=== PATIENT | female | born 1975 | race Caucasian/White ===

== ENCOUNTER 2023-11-19 08:51 | Outpatient (OUT) | payer OTHER, SELFPAY ==
--- NOTE | 2023-11-19 08:56 | MM_ITS ---
Patient Name: MIREYA CONNER MR#: [id number] : 1975 Exam Date: 11/19/2023 Ordering Doctor: DR Jae Murray . RADIOLOGY REPORT PROCEDURE: MM TOMOSYNTHESIS SCREENING BI COMPARISON: MG MAMM LIN SCRN W CAD DIG, 07/23/2015. MG MAMM SCREEN 3D LIN CAD, 05/21/2022. INDICATIONS: screening Calculator Name NCI Breast Cancer Risk Assessment Tool 5 Year Breast Cancer Risk 0.70% Lifetime Breast Cancer Risk 7.30% Personal Breast Cancer No Personal Ovarian Cancer No Treatments None Family Cancers Grandmother-maternal with breast cancer at age ~72; Grandmother-paternal with breast cancer at age ~68; Sister with uterine cancer at age 18. LOCATION: [facility] BREAST COMPOSITION: Heterogeneously dense,which may obscure small masses. FINDINGS: DIAGNOSTIC CATEGORY 1--NEGATIVE. NO CHANGE FROM COMPARISON ASSESSMENT. Scattered benign-appearing calcifications are present. Scattered benign-appearing lymph nodes are present. RIGHT BREAST: No significant suspicious finding. LEFT BREAST: No significant suspicious finding. RECOMMENDATIONS: ROUTINE MAMMOGRAM AND CLINICAL EVALUATION IN 12 MONTHS. PLEASE NOTE: A NORMAL MAMMOGRAM DOES NOT EXCLUDE THE POSSIBILITY OF BREAST CANCER. A CLINICALLY SUSPICIOUS PALPABLE LUMP SHOULD BE BIOPSIED. Dictated by: Lenin Palomares MD on 11/19/2023 at 13:21 Approved by: Lenin Palomares MD on 11/19/2023 at 13:23
--- NOTE | 2023-11-19 08:57 | US_ITS ---
The [address] [address] Patient Name: MIREYA CONNER MRN: [id number] date: 1975 Sex: F Assigned Patient Location: US Current Patient Location: LAB Accession/Order Number: [id number] Exam Date: 11/19/2023 09:00 Report Date: 11/19/2023 09:54 At the request of: ROSSI NUNO Procedure: US pelvis w/ transvaginal EXAM: Pelvic ultrasound HISTORY: . pelvic pin R10.2 . COMPARISON: None TECHNIQUE: Transabdominal and transvaginal scanning was performed. FINDINGS: The pelvis demonstrates an anteverted uterus measuring 7.6 x 5.1 x 4.1 cm. Myometrium is heterogeneous. Within the myometrium of the uterus there is a 10 mm x 7 mm hypoechoic solid area consistent with a fibroid. This is submucosal. Right ovary measures 1.3 x 2.8 x 2.1 cm. Color-flow is noted. There is a 4 x 2 mm echogenic focus within the right ovary. Left ovary measures 1.8 x 1.2 x 1.7 cm. Color-flow is noted. No masses are noted. Nabothian cysts are noted. No fluid is noted in the cul-de-sac. Endometrial complex measures 5 mm. US/US pelvis w/ transvaginal Impression: 1. There is a 10 mm fibroid involving the myometrium of the uterus. Endometrial complex is unremarkable. 2. Normal left ovary. 3. Within the right ovary there is a 4 x 2 mm echogenic area. Findings could represent a small calcification or a vascular calcification. 4. No fluid in the cul-de-sac. Electronically authenticated by: EVANGELISTA JOSÉ Date: 11/19/2023 09:54
--- NOTE | 2023-11-19 08:57 | XR_ITS ---
The [address] [address] Patient Name: MIREYA CONNER MRN: [id number] date: 1975 Sex: F Assigned Patient Location: US Current Patient Location: LAB Accession/Order Number: [id number] Exam Date: 11/19/2023 09:38 Report Date: 11/19/2023 09:53 At the request of: ROSSI NUNO Procedure: XR chest 2V EXAM: XR chest 2V HISTORY: well adult Z00.00 COMPARISON: None. TECHNIQUE: PA and lateral views of the chest. FINDINGS: The cardiomediastinal silhouette is normal. No focal consolidation is identified. There is no pneumothorax. No pleural effusion is noted. The osseous structures are intact. XR/XR chest 2V IMPRESSION: No acute cardiopulmonary process. Electronically authenticated by: OWEN GALE Date: 11/19/2023 09:53
== END 2023-11-19 08:52 | disposition home or self-care (01) ==
LOC: US 08:51
PROVIDERS: PCP Family Medicine; Visit Provider Family Medicine
DX: Z00.00 Encounter for general adult medical examination without abnormal findings (principal); R10.2 Pelvic and perineal pain; Z12.31 Encounter for screening mammogram for malignant neoplasm of breast; Z80.3 Family history of malignant neoplasm of breast; Z80.8 Family history of malignant neoplasm of other organs or systems
CPT/HCPCS: 71046; 76830; 76856; 77063; 77067

== ENCOUNTER 2023-11-25 22:00 | Outpatient (REF) | payer OTHER, SELFPAY ==
--- OUTSIDE RECORDS SUMMARY | 2023-11-26 09:39 | XMS_ITS | CCD ---
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 Susan Petersen INSULINon 05-21-2022 Insulin 9.7 uIU/mL Normal 2.6-24.9 [facility] Comment on above: Performed By: #### I NSULIN #### [facility] [address] [address] [address] Susan Petersen MG MAMM SCREEN 3D LIN CADon 05-21-2022 MG MAMM SCREEN 3D LIN CAD Patient: MIREYA CONNER Exam Date: 05/21/2022 : 1975 Gender:F Ordering : DR ROSSI NUNO . Admission #: [id number] Family : Order #: [id number] CLICK HERE TO VIEW EXAM RADIOLOGY REPORT [...] uterine cancer at age 17. LOCATION: [facility] BREAST COMPOSITION: Heterogeneously dense,which may obscure small [...] M.D. on 05/22/2022 at 14:26 Normal [facility] OCC BLD IMMUNO SCREENon OCCULT BLOOD Negative Normal NEGATIVE [facility] Comment on above: Performed By: #### O BSCRN #### [facility] [address] [place] [address] Dr. Susan Petersen CBC AUTO DIFFon 05-20-2022 BASO # 0.1 103/ul Normal 0.0-0.1 [facility] Comment on above: Performed By: #### C BC #### [facility] [address] [place] [address] Dr. Susan Petersen Basophils/100 WBC (Bld) 0.9 % Normal 0.2-2.0 [facility] Comment on above: Performed By: #### C BC #### [facility] [address] [place] [address] Dr. Susan Petersen EO # 0.2 103/ul Normal 0.0-0.7 [facility] Comment on above: Performed By: #### C BC #### [facility] [address] [place] [address] Dr. Suasn Petersen Eosinophils/100 WBC (Bld) 3.4 % Normal 0.9-7.0 [facility] Comment on above: Performed By: #### C BC #### [facility] [address] [place] [address] Dr. Susan Petersen Erythrocyte distribution width (RBC) [Ratio] 14.0 % Normal 11.0-15.0 [facility] Comment on above: Performed By: #### C BC #### [facility] [address] [place] [address] Dr. Susan Petersen Hematocrit (Bld) [Volume fraction] 41.2 % Normal 36.0-48.0 [facility] Comment on above: Performed By: #### C BC #### [facility] [address] [place] [address] Dr. Susan Petersen Hemoglobin (Bld) [Mass/Vol] 13.4 g/dL Normal 12.0-16.0 [facility] Comment on above: Performed By: #### C BC #### [facility] [address] [address] [address] Susan Petersen IG # 0.01 10e3/ul Normal 0.00-0.03 [facility] Comment on above: Performed By: #### C BC #### [facility] [address] [place] [address] Dr. Susan Petersen IG % 0.2 % Normal 0.0-0.5 [facility] Comment on above: Performed By: #### C BC #### [facility] [address] [place] [address] Dr. Susan Petersen LYMPH # 2.0 103/ul Normal 1.2-3.8 [facility] Comment on above: Performed By: #### C BC #### [facility] [address] [place] [address] Dr. Susan Petersen Lymphocytes/100 WBC (Bld) 34.8 % Normal 20.5-60.0 [facility] Comment on above: Performed By: #### C BC #### [facility] [address] [place] [address] Dr. Susan Petersen MANUAL DIFF REQ NO Normal [facility] Comment on above: Performed By: #### C BC #### [facility] [address] [place] [address] Dr. Susan Petersen MCH (RBC) [Entitic mass] 30.1 pg Normal 26.7-34.0 [facility] Comment on above: Performed By: #### C BC #### [facility] [address] [place] [address] Dr. Susan Petersen MCHC (RBC) [Mass/Vol] 32.5 g/dL Normal 29.9-35.2 [facility] Comment on above: Performed By: #### C BC #### [facility] [address] [place] [address] Dr. Susan Petersen MCV (RBC) [Entitic vol] 92.6 fL Normal 81.0-99.0 [facility] Comment on above: Performed By: #### C BC #### [facility] [address] [place] [address] Dr. Susan Petersen MONO # 0.5 103/ul Normal 0.3-0.8 [facility] Comment on above: Performed By: #### C BC #### [facility] [address] [place] [address] Dr. Susan Petersen Monocytes/100 WBC (Bld) 8.3 % Normal 1.7-12.0 [facility] Comment on above: Performed By: #### C BC #### [facility] [address] [place] [address] Dr. Susan Petersen NEUT # 3.1 103/ul Normal 1.4-6.5 [facility] Comment on above: Performed By: #### C BC #### [facility] [address] [place] [address] Dr. Susan Petersen Neutrophils/100 WBC (Bld) 52.4 % Normal 43.0-75.0 [facility] Comment on above: Performed By: #### C BC #### [facility] [address] [place] [address] Dr. Susan Petersen Platelet mean volume (Bld) [Entitic vol] 11.0 fL Normal 9.5-13.5 [facility] Comment on above: Performed By: #### C BC #### [facility] [address] [place] [address] Dr. Susan Petersen PLT 324 103/ul Normal 150-450 [facility] Comment on above: Performed By: #### C BC #### [facility] [address] [place] [address] Dr. Susan Petersen RBC 4.45 106/ul Normal 4.20-5.40 [facility] Comment on above: Performed By: #### C BC #### [facility] [address] [place] [address] Dr. Susan Petersen WBC 5.8 103/ul Normal 4.0-11.0 [facility] Comment on above: Performed By: #### C BC #### [facility] [address] [place] [address] Dr. Susan Petersen FREE THYROXINE INDEX T7on FTI 3.66 Normal 1.30-4.50 [facility] Comment on above: Performed By: #### I JAROD VITAD #### [facility] [address] [place] [address] Dr. Susan Petersen T3U 31.0 % Normal 30.0-39.0 [facility] Comment on above: Performed By: #### Autumn OLIVERA VITAD #### [facility] [address] [place] [address] Dr. Susan Petersen T4 [Mass/Vol] 11.80 ug/dL Normal 4.80-13.90 [facility] Comment on above: Performed By: #### Autumn OLIVERA VITAD #### [facility] [address] [place] [address] Dr. Susan Petersen GLYCOHEMOGLOBIN A1Con 2021 ADA RECOMMENDATION SEE BELOW Normal [facility] Comment on above: Result Comment: ADA RECOMMENDED LIMIT 4.0 - 6.0 ADA THERAPEUTIC TARGET < 7.0 ACTION SUGGESTED > 7.0 Performed By: #### A 1C #### [facility] [address] [place] [address] Dr. Susan Petersen Glucose [Mass/Vol] 120 mg/dL Normal [facility] Comment on above: Performed By: #### A 1C #### [facility] [address] [place] [address] Dr. Susan Petersen HbA1c (Bld) [Mass fraction] 5.8 % Normal 4.5-6.2 [facility] Comment on above: Performed By: #### A 1C #### [facility] [address] [place] [address] Dr. Susan Petersen IRONon 05-20-2022 Iron [Mass/Vol] 74.0 ug/dL Normal 50.0-170.0 [facility] Comment on above: Performed By: #### I JAROD VITAD #### [facility] [address] [place] [address] Dr. Susan Petersen LIPID PROFILEon 05-20-2022 CHOL-HDL RATIO NORM SEE BELOW Normal [facility] Comment on above: Result Comment: 3.3 - 4.4 LOW RISK 4.4 - 7.1 AVERAGE RISK 7.1 - 11.0 MODERATE RISK >11.0 HIGH RISK Performed By: #### T SH, CMP, T7, LIPID #### [facility] [address] [address] [address] Susan Petersen Cholesterol [Mass/Vol] 210 mg/dL Critically high <=200 [facility] Comment on above: Performed By: #### T SH, CMP, T7, LIPID #### [facility] [address] [address] [address] Susan Petersen Cholesterol in HDL [Mass/Vol] 42 mg/dL Normal 40-60 [facility] Comment on above: Performed By: #### T SH, CMP, T7, LIPID #### [facility] [address] [place] [address] Dr. Susan Petersen Cholesterol in LDL [Mass/Vol] 133.2 mg/dL Normal [facility] Comment on above: Performed By: #### T SH, CMP, T7, LIPID #### [facility] [address] [place] [address] Dr. Susan Petersen Cholesterol.total/Cho lesterol in HDL [Mass ratio] 5.0 {ratio} Normal [facility] Comment on above: Performed By: #### T SH, CMP, T7, LIPID #### [facility] [address] [place] [address] Dr. Susan Petersen HDL NORMAL > or = 60 mg/dl - LO W CARDIOVASCULAR RISK <40 mg/dl - HIGH CARDIOVASCULAR RISK Normal [facility] Comment on above: Performed By: #### T SH, CMP, T7, LIPID #### [facility] [address] [place] [address] Dr. Susan Petersen LDL CALC NORMAL SEE BELOW Normal [facility] Comment on above: Result Comment: <100 mg/dl OPTIMAL 100 - 129 mg/dl NEAR OR ABOVE OPTIMAL 130 - 159 mg/dl BORDERLINE HIGH 160 - 189 mg/dl HIGH >190 mg/dl VERY HIGH Performed By: #### T SH, CMP, T7, LIPID #### [facility] [address] [place] [address] Dr. Susan Petersen Triglyceride [Mass/Vol] 174 mg/dL Critically high <=150 [facility] Comment on above: Performed By: #### T SH, CMP, T7, LIPID #### [facility] [address] [address] [address] Susan Petersen VLDL CALC 34.8 mg/dL Normal [facility] Comment on above: Performed By: #### T SH, CMP, T7, LIPID #### [facility] [address] [place] [address] Dr. Susan Petersen PROF 14(COMP METB)on 022 Albumin [Mass/Vol] 3.7 g/dL Normal 3.4-5.0 [facility] Comment on above: Performed By: #### I JAROD VITAD #### [facility] [address] [place] [address] Dr. Susan Petersen Albumin/Globulin [Mass ratio] 0.9 {ratio} Normal [facility] Comment on above: Performed By: #### I JAROD VITAD #### [facility] [address] [place] [address] Dr. Susan Petersen ALP [Catalytic activity/Vol] 64 U/L Normal 46-116 [facility] Comment on above: Performed By: #### I JAROD VITAD #### [facility] [address] [place] [address] Dr. Susan Petersen ALT [Catalytic activity/Vol] 19 U/L Normal 14-59 [facility] Comment on above: Performed By: #### I JAROD VITAD #### [facility] [address] [place] [address] Dr. Susan Petersen Anion gap [Moles/Vol] 10.7 mmol/L Normal [facility] Comment on above: Performed By: #### I JAROD, VITAD #### [facility] [address] [place] [address] Dr. Susan Petersen AST [Catalytic activity/Vol] 12 U/L Critically low 15-37 [facility] Comment on above: Performed By: #### I JAROD, VITAD #### [facility] [address] [address] [address] Susan Petersen Bilirubin [Mass/Vol] 0.5 mg/dL Normal 0.2-1.0 [facility] Comment on above: Performed By: #### I JAROD, VITAD #### [facility] [address] [place] [address] Dr. Susan Petersen Calcium [Mass/Vol] 9.4 mg/dL Normal 8.5-10.1 [facility] Comment on above: Performed By: #### I JAROD, VITAD #### [facility] [address] [place] [address] Dr. Susan Petersen Chloride [Moles/Vol] 103 mmol/L Normal 98-107 [facility] Comment on above: Performed By: #### I JAROD, VITAD #### [facility] [address] [place] [address] Dr. Susan Petersen CO2 [Moles/Vol] 29.6 mmol/L Normal 21.0-32.0 [facility] Comment on above: Performed By: #### I JAROD, VITAD #### [facility] [address] [place] [address] Dr. Susan Petersen Creatinine [Mass/Vol] 1.01 mg/dL Normal 0.55-1.02 [facility] Comment on above: Performed By: #### I JAROD, VITAD #### [facility] [address] [place] [address] Dr. Susan Petersen EGFR-AF NAMIBIAN >60 Normal >=60 [facility] Comment on above: Performed By: #### I JAROD, VITAD #### [facility] [address] [place] [address] Dr. Susan Petersen EGFR-NON AF NAMIBIAN 59 mL/min/1.73m2 Critically low >=60 [facility] Comment on above: Performed By: #### I JAROD, VITAD #### [facility] [address] [place] [address] Dr. Susan Petersen Globulin (S) [Mass/Vol] 4.0 g/dL Normal [facility] Comment on above: Performed By: #### I JAROD, VITAD #### [facility] [address] [address] [address] Susan Petersen Glucose [Mass/Vol] 109 mg/dL Critically high 74-106 [facility] Comment on above: Performed By: #### I JAROD, VITAD #### [facility] [address] [address] [address] Susan Petersen Potassium [Moles/Vol] 4.3 mmol/L Normal 3.5-5.1 [facility] Comment on above: Performed By: #### I JAROD, VITAD #### [facility] [address] [address] [address] Susan Petersen Protein [Mass/Vol] 7.7 g/dL Normal 6.4-8.2 [facility] Comment on above: Performed By: #### I JAROD, VITAD #### [facility] [address] [place] [address] Dr. Susan Petersen Sodium [Moles/Vol] 139 mmol/L Normal 136-145 [facility] Comment on above: Performed By: #### I JAROD VITAD #### [facility] [address] [place] [address] Dr. Susan Petersen Urea nitrogen [Mass/Vol] 14.0 mg/dL Normal 7.0-18.0 [facility] Comment on above: Performed By: #### I JAROD, VITAD #### [facility] [address] [place] [address] Dr. Susan Petersen Urea nitrogen/Creatinine [Mass ratio] 13.9 mg/mg Normal [facility] Comment on above: Performed By: #### I JAROD, VITAD #### [facility] [address] [place] [address] Dr. Susan Petersen TSHon 05-20-2022 TSH 2.578 uIU/mL Normal 0.358-3.740 [facility] Comment on above: Performed By: #### T SH, CMP, T7, LIPID #### [facility] [address] [place] [address] Dr. Susan Petersen UA RANDOM W/MICROSCOPICon BACTERIA NONE SEEN Normal NONE SEEN [facility] Comment on above: Performed By: #### I JAROD, VITAD #### [facility] [address] [place] [address] Dr. Susan Petersen Bilirubin Ql (U) Negative Normal NEGATIVE [facility] Comment on above: Performed By: #### I JAROD, VITAD #### [facility] [address] [place] [address] Dr. Susan Petersen CAST NONE SEEN Normal NONE SEEN [facility] Comment on above: Performed By: #### I JAROD, VITAD #### [facility] [address] [place] [address] Dr. Susan Petersen Clarity (U) CLEAR Normal CLEAR [facility] Comment on above: Performed By: #### I JAROD, VITAD #### [facility] [address] [place] [address] Dr. Susan Petersen Color (U) LT. YELLOW Normal YELLOW [facility] Comment on above: Performed By: #### I JAROD, VITAD #### [facility] [address] [place] [address] Dr. Susan Petersen Crystals LM Nom (Urine sed) NONE SEEN Normal NONE SEEN [facility] Comment on above: Performed By: #### I JAROD, VITAD #### [facility] [address] [place] [address] Dr. Susan Petersen Epithelial cells LM Ql (Urine sed) RARE Normal NONE SEEN /RARE [facility] Comment on above: Performed By: #### I JAROD, VITAD #### [facility] [address] [place] [address] Dr. Susan Petersen Glucose Ql (U) Negative Normal NEGATIVE [facility] Comment on above: Performed By: #### I JAROD, VITAD #### [facility] [address] [place] [address] Dr. Susan Petersen Hemoglobin Ql (U) Negative Normal NEGATIVE [facility] Comment on above: Performed By: #### I JAROD, VITAD #### [facility] [address] [place] [address] Dr. Susan Petersen Ketones Ql (U) Negative Normal NEGATIVE [facility] Comment on above: Performed By: #### I JAROD, VITAD #### [facility] [address] [place] [address] Dr. Susan Petersen LEUKOCYTES Negative Normal NEGATIVE [facility] Comment on above: Performed By: #### I JAROD, VITAD #### [facility] [address] [place] [address] Dr. Susan Petersen MUCOUS NONE SEEN Normal NONE SEEN [facility] Comment on above: Performed By: #### I JAROD, VITAD #### [facility] [address] [place] [address] Dr. Susan Petersen Nitrite Ql (U) Negative Normal NEGATIVE [facility] Comment on above: Performed By: #### I JAROD VITAD #### [facility] [address] [place] [address] Dr. Susan Petersen pH (U) 7.0 [pH] Normal 5-9 [facility] Comment on above: Performed By: #### I JAROD VITAD #### [facility] [address] [place] [address] Dr. Susan Petersen RBC NONE SEEN Abnormal 0-2 [facility] Comment on above: Performed By: #### I JAROD VITAD #### [facility] [address] [place] [address] Dr. Susan Petersen SPEC GRAVITY <=1.005 Abnormal 1.005-<=1.025 [facility] Comment on above: Performed By: #### I JAROD VITAD #### [facility] [address] [place] [address] Dr. Susan Petersen UA PROTEIN Negative Normal NEGATIVE/ TRACE [facility] Comment on above: Performed By: #### I JAROD VITAD #### [facility] [address] [place] [address] Dr. Susan Petersen Urobilinogen Qn (U) 0.2 {Camila'U}/dL Normal 0.2 - 1. 0 [facility] Comment on above: Performed By: #### I JAROD VITAD #### [facility] [address] [place] [address] Dr. Susan Petersen WBC NONE SEEN Normal NONE SEEN [facility] Comment on above: Performed By: #### I JAROD VITAD #### [facility] [address] [place] [address] Dr. Susan Petersen VITAMIN D 25 OHon 05-20-2022 VIT D 25-OH 54.6 ng/mL Normal [facility] Comment on above: Performed By: #### I JAROD, VITAD #### [facility] [address] [address] [address] Susan Petersen VIT D RANGES SEE BELOW Normal [facility] Comment on above: Result Comment: <20 ng/mL Vit D deficient 20 - <30 ng/mL Vit D insufficient 30 - 100 ng/mL Vit D sufficient >100 ng/mL Potential Toxicity Performed By: #### I JAROD VITAD #### [facility] [address] [place] [address] Dr. Susan Petersen Encounters Encounter Date Encounter Type Care Provider Facility Start: 05-25-2022 Encounter for genera l adult medical examination without abnormal findings DR ROSSI NUNO [facility] Start: 05-21-2022 End: 05-22-[address] ROSSI NUNO Facility:[facility] Start: 05-21-2022 End: 05-22-2022 Encounter for general adult medical examination without abnormal findings DR ROSSI NUNO Facility:[facility] Start: 05-20-2022 End: 05-21-[address] ROSSI NUNO Facility:[facility] Payers Date Payer Category Payer Unknown [id number] 1975 Unknown [id number] 1960 Unknown [id number] Summary Purpose Family History No Family History Records Found Advance Directives No Advanced Directives Records Found Additional Source Comments INFORMATION SOURCE (unrecogn ized section and content) DATE CREATED AUTHOR 05/26/2022 [facility] FOR RECORDS PERTAINING TO PATIENTS WHO ARE [...] BE BASED ON THE PRIMARY CLINICAL RECORDS. [facility] [employer] [facility]. provides no warranty or guarantee of the accuracy or completeness of information in this document.
--- OUTSIDE RECORDS SUMMARY | 2023-11-26 09:43 | XMS_ITS | CCD ---
Author Name Unknown Address [address] [place] [address] [address] [place] [id number] Organization [facility] Care Team Providers Care Multimedia Author Name Role Phone DR ROSSI NUNO Primary [...] (1 source) Codeine Drug Allergy 08-01-2015 [facility] (1 source) traMADol Drug Allergy 08-01-2015 [facility] Problems Problem Classification Problem Date Documented [...] Trimethoprim/Sulfamet hoxazole >=320 R F Normal [facility] Comment on above: Performed By: #### U RCX #### [facility] [address] [address] [address] Susan Petersen INSULINon 05-21-2022 Insulin 9.7 uIU/mL Normal 2.6-24.9 [facility] Comment on above: Performed By: #### I NSULIN #### [facility] [address] [address] [address] Susan Petersen MG MAMM SCREEN 3D LIN CADon 05-21-2022 MG MAMM SCREEN 3D LIN CAD Patient: MIREYA CONNER Exam Date: 05/21/2022 : 1975 Gender:F Ordering : DR ROSSI NUNO . Admission #: [id number] Family : Order #: [id number] CLICK HERE TO VIEW EXAM RADIOLOGY REPORT [...] uterine cancer at age 17. LOCATION: [facility] BREAST COMPOSITION: Heterogeneously dense,which may obscure small [...] M.D. on 05/22/2022 at 14:26 Normal [facility] OCC BLD IMMUNO SCREENon OCCULT BLOOD Negative Normal NEGATIVE [facility] Comment on above: Performed By: #### O BSCRN #### [facility] [address] [place] [address] Dr. Susan Petersen CBC AUTO DIFFon 05-20-2022 BASO # 0.1 103/ul Normal 0.0-0.1 [facility] Comment on above: Performed By: #### C BC #### [facility] [address] [place] [address] Dr. Susan Petersen Basophils/100 WBC (Bld) 0.9 % Normal 0.2-2.0 [facility] Comment on above: Performed By: #### C BC #### [facility] [address] [place] [address] Dr. Susan Petersen EO # 0.2 103/ul Normal 0.0-0.7 [facility] Comment on above: Performed By: #### C BC #### [facility] [address] [place] [address] Dr. Susan Petersen Eosinophils/100 WBC (Bld) 3.4 % Normal 0.9-7.0 [facility] Comment on above: Performed By: #### C BC #### [facility] [address] [place] [address] Dr. Susan Petersen Erythrocyte distribution width (RBC) [Ratio] 14.0 % Normal 11.0-15.0 [facility] Comment on above: Performed By: #### C BC #### [facility] [address] [place] [address] Dr. Susan Petersen Hematocrit (Bld) [Volume fraction] 41.2 % Normal 36.0-48.0 [facility] Comment on above: Performed By: #### C BC #### [facility] [address] [place] [address] Dr. Susan Petersen Hemoglobin (Bld) [Mass/Vol] 13.4 g/dL Normal 12.0-16.0 [facility] Comment on above: Performed By: #### C BC #### [facility] [address] [address] [address] Susan Petersen IG # 0.01 10e3/ul Normal 0.00-0.03 [facility] Comment on above: Performed By: #### C BC #### [facility] [address] [place] [address] Dr. Susan Petersen IG % 0.2 % Normal 0.0-0.5 [facility] Comment on above: Performed By: #### C BC #### [facility] [address] [place] [address] Dr. Susan Petersen LYMPH # 2.0 103/ul Normal 1.2-3.8 [facility] Comment on above: Performed By: #### C BC #### [facility] [address] [place] [address] Dr. Susan Petersen Lymphocytes/100 WBC (Bld) 34.8 % Normal 20.5-60.0 [facility] Comment on above: Performed By: #### C BC #### [facility] [address] [place] [address] Dr. Susan Petersen MANUAL DIFF REQ NO Normal [facility] Comment on above: Performed By: #### C BC #### [facility] [address] [place] [address] Dr. Susan Petersen MCH (RBC) [Entitic mass] 30.1 pg Normal 26.7-34.0 [facility] Comment on above: Performed By: #### C BC #### [facility] [address] [place] [address] Dr. Susan Petersen MCHC (RBC) [Mass/Vol] 32.5 g/dL Normal 29.9-35.2 [facility] Comment on above: Performed By: #### C BC #### [facility] [address] [place] [address] Dr. Susan Petersen MCV (RBC) [Entitic vol] 92.6 fL Normal 81.0-99.0 [facility] Comment on above: Performed By: #### C BC #### [facility] [address] [place] [address] Dr. Susan Petersen MONO # 0.5 103/ul Normal 0.3-0.8 [facility] Comment on above: Performed By: #### C BC #### [facility] [address] [place] [address] Dr. Susan Petersen Monocytes/100 WBC (Bld) 8.3 % Normal 1.7-12.0 [facility] Comment on above: Performed By: #### C BC #### [facility] [address] [place] [address] Dr. Susan Petersen NEUT # 3.1 103/ul Normal 1.4-6.5 [facility] Comment on above: Performed By: #### C BC #### [facility] [address] [place] [address] Dr. Susan Petersen Neutrophils/100 WBC (Bld) 52.4 % Normal 43.0-75.0 [facility] Comment on above: Performed By: #### C BC #### [facility] [address] [place] [address] Dr. Susan Petersen Platelet mean volume (Bld) [Entitic vol] 11.0 fL Normal 9.5-13.5 [facility] Comment on above: Performed By: #### C BC #### [facility] [address] [place] [address] Dr. Susan Petersen PLT 324 103/ul Normal 150-450 [facility] Comment on above: Performed By: #### C BC #### [facility] [address] [place] [address] Dr. Susan Petersen RBC 4.45 106/ul Normal 4.20-5.40 [facility] Comment on above: Performed By: #### C BC #### [facility] [address] [place] [address] Dr. Susan Petersen WBC 5.8 103/ul Normal 4.0-11.0 [facility] Comment on above: Performed By: #### C BC #### [facility] [address] [place] [address] Dr. Susan Petersen FREE THYROXINE INDEX T7on FTI 3.66 Normal 1.30-4.50 [facility] Comment on above: Performed By: #### I JAROD VITAD #### [facility] [address] [place] [address] Dr. Susan Petersen T3U 31.0 % Normal 30.0-39.0 [facility] Comment on above: Performed By: #### Autumn OLIVERA VITAD #### [facility] [address] [place] [address] Dr. Susan Petersen T4 [Mass/Vol] 11.80 ug/dL Normal 4.80-13.90 [facility] Comment on above: Performed By: #### Autumn OLIVERA VITAD #### [facility] [address] [place] [address] Dr. Susan Petersen GLYCOHEMOGLOBIN A1Con 2021 ADA RECOMMENDATION SEE BELOW Normal [facility] Comment on above: Result Comment: ADA RECOMMENDED LIMIT 4.0 - 6.0 ADA THERAPEUTIC TARGET < 7.0 ACTION SUGGESTED > 7.0 Performed By: #### A 1C #### [facility] [address] [place] [address] Dr. Susan Petersen Glucose [Mass/Vol] 120 mg/dL Normal [facility] Comment on above: Performed By: #### A 1C #### [facility] [address] [place] [address] Dr. Susan Petersen HbA1c (Bld) [Mass fraction] 5.8 % Normal 4.5-6.2 [facility] Comment on above: Performed By: #### A 1C #### [facility] [address] [place] [address] Dr. Susan Pteersen IRONon 05-20-2022 Iron [Mass/Vol] 74.0 ug/dL Normal 50.0-170.0 [facility] Comment on above: Performed By: #### I JAROD VITAD #### [facility] [address] [place] [address] Dr. Susan Petersen LIPID PROFILEon 05-20-2022 CHOL-HDL RATIO NORM SEE BELOW Normal [facility] Comment on above: Result Comment: 3.3 - 4.4 LOW RISK 4.4 - 7.1 AVERAGE RISK 7.1 - 11.0 MODERATE RISK >11.0 HIGH RISK Performed By: #### T SH, CMP, T7, LIPID #### [facility] [address] [address] [address] Susan Petersen Cholesterol [Mass/Vol] 210 mg/dL Critically high <=200 [facility] Comment on above: Performed By: #### T SH, CMP, T7, LIPID #### [facility] [address] [address] [address] Susan Petersen Cholesterol in HDL [Mass/Vol] 42 mg/dL Normal 40-60 [facility] Comment on above: Performed By: #### T SH, CMP, T7, LIPID #### [facility] [address] [place] [address] Dr. Susan Petersen Cholesterol in LDL [Mass/Vol] 133.2 mg/dL Normal [facility] Comment on above: Performed By: #### T SH, CMP, T7, LIPID #### [facility] [address] [place] [address] Dr. Susan Petersen Cholesterol.total/Cho lesterol in HDL [Mass ratio] 5.0 {ratio} Normal [facility] Comment on above: Performed By: #### T SH, CMP, T7, LIPID #### [facility] [address] [place] [address] Dr. Susan Petersen HDL NORMAL > or = 60 mg/dl - LO W CARDIOVASCULAR RISK <40 mg/dl - HIGH CARDIOVASCULAR RISK Normal [facility] Comment on above: Performed By: #### T SH, CMP, T7, LIPID #### [facility] [address] [place] [address] Dr. Susan Petersen LDL CALC NORMAL SEE BELOW Normal [facility] Comment on above: Result Comment: <100 mg/dl OPTIMAL 100 - 129 mg/dl NEAR OR ABOVE OPTIMAL 130 - 159 mg/dl BORDERLINE HIGH 160 - 189 mg/dl HIGH >190 mg/dl VERY HIGH Performed By: #### T SH, CMP, T7, LIPID #### [facility] [address] [place] [address] Dr. Susan Petersen Triglyceride [Mass/Vol] 174 mg/dL Critically high <=150 [facility] Comment on above: Performed By: #### T SH, CMP, T7, LIPID #### [facility] [address] [address] [address] Susan Petersen VLDL CALC 34.8 mg/dL Normal [facility] Comment on above: Performed By: #### T SH, CMP, T7, LIPID #### [facility] [address] [place] [address] Dr. Susan Petersen PROF 14(COMP METB)on 022 Albumin [Mass/Vol] 3.7 g/dL Normal 3.4-5.0 [facility] Comment on above: Performed By: #### I JAROD VITAD #### [facility] [address] [place] [address] Dr. Susan Petersen Albumin/Globulin [Mass ratio] 0.9 {ratio} Normal [facility] Comment on above: Performed By: #### I JAROD VITAD #### [facility] [address] [place] [address] Dr. Susan Petersen ALP [Catalytic activity/Vol] 64 U/L Normal 46-116 [facility] Comment on above: Performed By: #### I JAROD VITAD #### [facility] [address] [place] [address] Dr. Susan Petersen ALT [Catalytic activity/Vol] 19 U/L Normal 14-59 [facility] Comment on above: Performed By: #### I JAROD VITAD #### [facility] [address] [place] [address] Dr. Susan Petersen Anion gap [Moles/Vol] 10.7 mmol/L Normal [facility] Comment on above: Performed By: #### I JAROD, VITAD #### [facility] [address] [place] [address] Dr. Susan Petersen AST [Catalytic activity/Vol] 12 U/L Critically low 15-37 [facility] Comment on above: Performed By: #### I JAROD, VITAD #### [facility] [address] [address] [address] Susan Petersen Bilirubin [Mass/Vol] 0.5 mg/dL Normal 0.2-1.0 [facility] Comment on above: Performed By: #### I JAROD, VITAD #### [facility] [address] [place] [address] Dr. Susan Petersen Calcium [Mass/Vol] 9.4 mg/dL Normal 8.5-10.1 [facility] Comment on above: Performed By: #### I JAROD, VITAD #### [facility] [address] [place] [address] Dr. Susan Petersen Chloride [Moles/Vol] 103 mmol/L Normal 98-107 [facility] Comment on above: Performed By: #### I JAROD, VITAD #### [facility] [address] [place] [address] Dr. Susan Petersen CO2 [Moles/Vol] 29.6 mmol/L Normal 21.0-32.0 [facility] Comment on above: Performed By: #### I JAROD, VITAD #### [facility] [address] [place] [address] Dr. Susan Petersen Creatinine [Mass/Vol] 1.01 mg/dL Normal 0.55-1.02 [facility] Comment on above: Performed By: #### I JAROD, VITAD #### [facility] [address] [place] [address] Dr. Susan Petersen EGFR-AF SIERRA LEONEAN >60 Normal >=60 [facility] Comment on above: Performed By: #### I JAROD, VITAD #### [facility] [address] [place] [address] Dr. Susan Petersen EGFR-NON AF SIERRA LEONEAN 59 mL/min/1.73m2 Critically low >=60 [facility] Comment on above: Performed By: #### I JAROD, VITAD #### [facility] [address] [place] [address] Dr. Susan Petersen Globulin (S) [Mass/Vol] 4.0 g/dL Normal [facility] Comment on above: Performed By: #### I JAROD, VITAD #### [facility] [address] [address] [address] Susan Petersen Glucose [Mass/Vol] 109 mg/dL Critically high 74-106 [facility] Comment on above: Performed By: #### I JAROD, VITAD #### [facility] [address] [address] [address] Susan Petersen Potassium [Moles/Vol] 4.3 mmol/L Normal 3.5-5.1 [facility] Comment on above: Performed By: #### I JAROD, VITAD #### [facility] [address] [address] [address] Susan Petersen Protein [Mass/Vol] 7.7 g/dL Normal 6.4-8.2 [facility] Comment on above: Performed By: #### I JAROD, VITAD #### [facility] [address] [place] [address] Dr. Susan Petersen Sodium [Moles/Vol] 139 mmol/L Normal 136-145 [facility] Comment on above: Performed By: #### I JAROD VITAD #### [facility] [address] [place] [address] Dr. Susan Petersen Urea nitrogen [Mass/Vol] 14.0 mg/dL Normal 7.0-18.0 [facility] Comment on above: Performed By: #### I JAROD, VITAD #### [facility] [address] [place] [address] Dr. Susan Petersen Urea nitrogen/Creatinine [Mass ratio] 13.9 mg/mg Normal [facility] Comment on above: Performed By: #### I JAROD, VITAD #### [facility] [address] [place] [address] Dr. Susan Petersen TSHon 05-20-2022 TSH 2.578 uIU/mL Normal 0.358-3.740 [facility] Comment on above: Performed By: #### T SH, CMP, T7, LIPID #### [facility] [address] [place] [address] Dr. Susan Petersen UA RANDOM W/MICROSCOPICon BACTERIA NONE SEEN Normal NONE SEEN [facility] Comment on above: Performed By: #### I JAROD, VITAD #### [facility] [address] [place] [address] Dr. Susan Petersen Bilirubin Ql (U) Negative Normal NEGATIVE [facility] Comment on above: Performed By: #### I JAROD, VITAD #### [facility] [address] [place] [address] Dr. Susan Petersen CAST NONE SEEN Normal NONE SEEN [facility] Comment on above: Performed By: #### I JAROD, VITAD #### [facility] [address] [place] [address] Dr. Susan Petersen Clarity (U) CLEAR Normal CLEAR [facility] Comment on above: Performed By: #### I JAROD, VITAD #### [facility] [address] [place] [address] Dr. Susan Petersen Color (U) LT. YELLOW Normal YELLOW [facility] Comment on above: Performed By: #### I JAROD, VITAD #### [facility] [address] [place] [address] Dr. Susan Petersen Crystals LM Nom (Urine sed) NONE SEEN Normal NONE SEEN [facility] Comment on above: Performed By: #### I JAROD, VITAD #### [facility] [address] [place] [address] Dr. Susan Petersen Epithelial cells LM Ql (Urine sed) RARE Normal NONE SEEN /RARE [facility] Comment on above: Performed By: #### I JAROD, VITAD #### [facility] [address] [place] [address] Dr. Susan Petersen Glucose Ql (U) Negative Normal NEGATIVE [facility] Comment on above: Performed By: #### I JAROD, VITAD #### [facility] [address] [place] [address] Dr. Susan Petersen Hemoglobin Ql (U) Negative Normal NEGATIVE [facility] Comment on above: Performed By: #### I JAROD, VITAD #### [facility] [address] [place] [address] Dr. Susan Petersen Ketones Ql (U) Negative Normal NEGATIVE [facility] Comment on above: Performed By: #### I JAROD, VITAD #### [facility] [address] [place] [address] Dr. Susan Petersen LEUKOCYTES Negative Normal NEGATIVE [facility] Comment on above: Performed By: #### I JAROD, VITAD #### [facility] [address] [place] [address] Dr. Susan Petersen MUCOUS NONE SEEN Normal NONE SEEN [facility] Comment on above: Performed By: #### I JAROD, VITAD #### [facility] [address] [place] [address] Dr. Susan Petersen Nitrite Ql (U) Negative Normal NEGATIVE [facility] Comment on above: Performed By: #### I JAROD VITAD #### [facility] [address] [place] [address] Dr. Susan Petersen pH (U) 7.0 [pH] Normal 5-9 [facility] Comment on above: Performed By: #### I JAROD VITAD #### [facility] [address] [place] [address] Dr. Susan Petersen RBC NONE SEEN Abnormal 0-2 [facility] Comment on above: Performed By: #### I JAROD VITAD #### [facility] [address] [place] [address] Dr. Susan Petersen SPEC GRAVITY <=1.005 Abnormal 1.005-<=1.025 [facility] Comment on above: Performed By: #### I JAROD VITAD #### [facility] [address] [place] [address] Dr. Susan Petersen UA PROTEIN Negative Normal NEGATIVE/ TRACE [facility] Comment on above: Performed By: #### I JAROD VITAD #### [facility] [address] [place] [address] Dr. Susan Petersen Urobilinogen Qn (U) 0.2 {Camila'U}/dL Normal 0.2 - 1. 0 [facility] Comment on above: Performed By: #### I JAROD VITAD #### [facility] [address] [place] [address] Dr. Susan Petersen WBC NONE SEEN Normal NONE SEEN [facility] Comment on above: Performed By: #### I JAROD VITAD #### [facility] [address] [place] [address] Dr. Susan Petersen VITAMIN D 25 OHon 05-20-2022 VIT D 25-OH 54.6 ng/mL Normal [facility] Comment on above: Performed By: #### I JAROD, VITAD #### [facility] [address] [address] [address] Susan Petersen VIT D RANGES SEE BELOW Normal [facility] Comment on above: Result Comment: <20 ng/mL Vit D deficient 20 - <30 ng/mL Vit D insufficient 30 - 100 ng/mL Vit D sufficient >100 ng/mL Potential Toxicity Performed By: #### I JAROD VITAD #### [facility] [address] [place] [address] Dr. Susan Petersen Encounters Encounter Date Encounter Type Care Provider Facility Start: 05-25-2022 Encounter for genera l adult medical examination without abnormal findings DR ROSSI NUNO [facility] Start: 05-21-2022 End: 05-22-[address] ROSSI NUNO Facility:[facility] Start: 05-21-2022 End: 05-22-2022 Encounter for general adult medical examination without abnormal findings DR ROSSI NUNO Facility:[facility] Start: 05-20-2022 End: 05-21-[address] ROSSI NUNO Facility:[facility] Payers Date Payer Category Payer Unknown [id number] 1975 Unknown [id number] 1960 Unknown [id number] Summary Purpose Family History No Family History Records Found Advance Directives No Advanced Directives Records Found Additional Source Comments INFORMATION SOURCE (unrecogn ized section and content) DATE CREATED AUTHOR 05/26/2022 [facility] FOR RECORDS PERTAINING TO PATIENTS WHO ARE [...] BE BASED ON THE PRIMARY CLINICAL RECORDS. [facility] [employer] [facility]. provides no warranty or guarantee of the accuracy or completeness of information in this document.
[2023-11-26 11:13] LABS: Occult Blood Positive
== END 2023-11-25 22:01 | disposition home or self-care (01) ==
LOC: LAB 22:00
PROVIDERS: PCP Family Medicine; Visit Provider Family Medicine
DX: Z00.00 Encounter for general adult medical examination without abnormal findings (principal)
CPT/HCPCS: G0328

== ENCOUNTER 2023-11-26 09:25 | Outpatient (OUT) | payer OTHER, SELFPAY ==
--- OUTSIDE RECORDS SUMMARY | 2023-11-26 09:35 | XMS_ITS | CCD ---
Author Name Unknown Address [address] [place] [address] [address] [place] [id number] Organization [facility] Care Team Providers Care Product Director Name Role Phone DR ROSSI NUNO Primary Care Unavailable NURYS, DR RICHEY Admitting Unavailable NURYS, DR RICHEY Attending Unavailable NURYS, DR RICHEY Consulting Unavailable MARILYN, DR PRATIK Dugan Consulting Unavailable DR ROSSI NUNO Consulting Unavailable DR ROSSI NUNO Primary Care Unavailable DR ROSSI NUNO Admitting Unavailable NURYS, DR RICHEY Attending Unavailable Allergies Allergy Classification Reported Allergen(s) Allergy Type Date of Onset Reaction(s) Facility (1 source) Codeine Drug Allergy 08-01-2015 [facility] Repository (1 source) traMADol Drug Allergy 08-01-2015 [facility] Repository Problems Problem Classification Problem Date Documented Da te Episodic/Chronic Other screening for suspected conditions (not mental disorders or infectious disease) (1 source) Encounter for screening mammogram for malignant neoplasm of breast; Translations: [ENC SCR MAMMO MALIG NEOPLASM BREAST] Onset: 05-25-2022 Episodic Residual codes; unclassified (1 source) Family history of malignant neoplasm of breast; Translations: [FAMILY HX MALIG NEOPLASM OF BREAST] Onset: 05-25-2022 Episodic Residual codes; unclassified (1 source) Family history of malignant neoplasm of other genital organs; Translations: [FAM HX MALIG NEOPLSM OTH GENIT ORGN] Onset: 05-25-2022 Episodic Results Test Name Value Interpretation Reference Range Facility CULTURE URINEon 05-22-2022 CULTURE URINE Isolate 1 Escherichia coli 40,000 cfu/ml of ORGANISM 1 Escherichia coli ANTIBIOTIC M.I.C RX STATUS Ampicillin >=32 R F Ampicillin/Sulbactam 4 S F Piperacillin/Tazobact am <=4 S F Cefazolin <=4 S F Ceftazidime <=1 S F Ceftriaxone <=1 S F Ertapenem <=0.5 S F Imipenem <=0.25 S F Amikacin <=2 S F Gentamicin <=1 S F Tobramycin <=1 S F Ciprofloxacin <=0.25 S F Levofloxacin <=0.12 S F Nitrofurantoin <=16 S F Trimethoprim/Sulfamet hoxazole >=320 R F Normal [facility] Comment on above: Performed By: #### U RCX #### [facility] [address] [address] [address] Susan Petersen INSULINon 05-21-2022 Insulin 9.7 uIU/mL Normal 2.6-24.9 [facility] Comment on above: Performed By: #### I NSULIN #### [facility] [address] [address] [address] Susan Petersen MG MAMM SCREEN 3D LIN CADon 05-21-2022 MG MAMM SCREEN 3D LIN CAD Patient: MIREYA CONNER Exam Date: 05/21/2022 : 1975 Gender:F Ordering : DR ROSSI NUNO . Admission #: [id number] Family : Order #: [id number] CLICK HERE TO VIEW EXAM RADIOLOGY REPORT PROCEDURE: MAMMOGRAM SCREENING 3D BILATERAL CAD COMPARISON: MG MAMM LIN SCRN W CAD DIG, 07/23/2015. INDICATIONS: Screening mammography Calculator Name NCI Breast Cancer Risk Assessment Tool 5 Year Breast Cancer Risk 0.70% Lifetime Breast Cancer Risk 7.50% Personal Breast Cancer No Personal Ovarian Cancer No Treatments None Family Cancers Grandmother-maternal with breast cancer at age 72; Grandmother-paternal with breast cancer at age 68; Sister with uterine cancer at age 18. LOCATION: [facility] BREAST COMPOSITION: Heterogeneously dense,which may obscure small masses. FINDINGS: DIAGNOSTIC CATEGORY 1--NEGATIVE. RIGHT BREAST: No significant suspicious finding. No significant change has occurred. LEFT BREAST: No significant suspicious finding. No significant change has occurred. RECOMMENDATIONS: ROUTINE MAMMOGRAM AND CLINICAL EVALUATION IN 12 MONTHS. PLEASE NOTE: A NORMAL MAMMOGRAM DOES NOT EXCLUDE THE POSSIBILITY OF BREAST CANCER. A CLINICALLY SUSPICIOUS PALPABLE LUMP SHOULD BE BIOPSIED. Dictated by: Pratik Cote M.D. on 05/22/2022 at 14:22 Approved by: Pratik Cote M.D. on 05/22/2022 at 14:26 Normal [facility] OCC BLD IMMUNO SCREENon OCCULT BLOOD Negative Normal NEGATIVE [facility] Comment on above: Performed By: #### O BSCRN #### [facility] [address] [place] [address] Dr. Susan Petersen CBC AUTO DIFFon 05-20-2022 BASO # 0.1 103/ul Normal 0.0-0.1 [facility] Comment on above: Performed By: #### C BC #### [facility] [address] [place] [address] Dr. Susan Petersen Basophils/100 WBC (Bld) 0.9 % Normal 0.2-2.0 [facility] Comment on above: Performed By: #### C BC #### [facility] [address] [place] [address] Dr. Susan Petersen EO # 0.2 103/ul Normal 0.0-0.7 [facility] Comment on above: Performed By: #### C BC #### [facility] [address] [place] [address] Dr. Susan Petersen Eosinophils/100 WBC (Bld) 3.4 % Normal 0.9-7.0 [facility] Comment on above: Performed By: #### C BC #### [facility] [address] [place] [address] Dr. Susan Petersen Erythrocyte distribution width (RBC) [Ratio] 14.0 % Normal 11.0-15.0 [facility] Comment on above: Performed By: #### C BC #### [facility] [address] [place] [address] Dr. Susan Petersen Hematocrit (Bld) [Volume fraction] 41.2 % Normal 36.0-48.0 [facility] Comment on above: Performed By: #### C BC #### [facility] [address] [place] [address] Dr. Susan Petersen Hemoglobin (Bld) [Mass/Vol] 13.4 g/dL Normal 12.0-16.0 [facility] Comment on above: Performed By: #### C BC #### [facility] [address] [address] [address] Susan Petersen IG # 0.01 10e3/ul Normal 0.00-0.03 [facility] Comment on above: Performed By: #### C BC #### [facility] [address] [place] [address] Dr. Susan Petersen IG % 0.2 % Normal 0.0-0.5 [facility] Comment on above: Performed By: #### C BC #### [facility] [address] [place] [address] Dr. Susan Petersen LYMPH # 2.0 103/ul Normal 1.2-3.8 [facility] Comment on above: Performed By: #### C BC #### [facility] [address] [place] [address] Dr. Susan Petersen Lymphocytes/100 WBC (Bld) 34.8 % Normal 20.5-60.0 [facility] Comment on above: Performed By: #### C BC #### [facility] [address] [place] [address] Dr. Susan Petersen MANUAL DIFF REQ NO Normal [facility] Comment on above: Performed By: #### C BC #### [facility] [address] [place] [address] Dr. Susan Petersen MCH (RBC) [Entitic mass] 30.1 pg Normal 26.7-34.0 [facility] Comment on above: Performed By: #### C BC #### [facility] [address] [place] [address] Dr. Susan Petersen MCHC (RBC) [Mass/Vol] 32.5 g/dL Normal 29.9-35.2 [facility] Comment on above: Performed By: #### C BC #### [facility] [address] [place] [address] Dr. Susan Petersen MCV (RBC) [Entitic vol] 92.6 fL Normal 81.0-99.0 [facility] Comment on above: Performed By: #### C BC #### [facility] [address] [place] [address] Dr. Susan Petersen MONO # 0.5 103/ul Normal 0.3-0.8 [facility] Comment on above: Performed By: #### C BC #### [facility] [address] [place] [address] Dr. Susan Petersen Monocytes/100 WBC (Bld) 8.3 % Normal 1.7-12.0 [facility] Comment on above: Performed By: #### C BC #### [facility] [address] [place] [address] Dr. Susan Petersen NEUT # 3.1 103/ul Normal 1.4-6.5 [facility] Comment on above: Performed By: #### C BC #### [facility] [address] [place] [address] Dr. Susan Petersen Neutrophils/100 WBC (Bld) 52.4 % Normal 43.0-75.0 [facility] Comment on above: Performed By: #### C BC #### [facility] [address] [place] [address] Dr. Susan Petersen Platelet mean volume (Bld) [Entitic vol] 11.0 fL Normal 9.5-13.5 [facility] Comment on above: Performed By: #### C BC #### [facility] [address] [place] [address] Dr. Susan Petersen PLT 324 103/ul Normal 150-450 [facility] Comment on above: Performed By: #### C BC #### [facility] [address] [place] [address] Dr. Susan Petersen RBC 4.45 106/ul Normal 4.20-5.40 [facility] Comment on above: Performed By: #### C BC #### [facility] [address] [place] [address] Dr. Susan Petersen WBC 5.8 103/ul Normal 4.0-11.0 [facility] Comment on above: Performed By: #### C BC #### [facility] [address] [place] [address] Dr. Susan Petersen FREE THYROXINE INDEX T7on FTI 3.66 Normal 1.30-4.50 [facility] Comment on above: Performed By: #### I JAROD VITAD #### [facility] [address] [place] [address] Dr. Susan Petersen T3U 31.0 % Normal 30.0-39.0 [facility] Comment on above: Performed By: #### Autumn OLIVERA VITAD #### [facility] [address] [place] [address] Dr. Susan Petersen T4 [Mass/Vol] 11.80 ug/dL Normal 4.80-13.90 [facility] Comment on above: Performed By: #### Autumn OLIVERA VITAD #### [facility] [address] [place] [address] Dr. Susan Petersen GLYCOHEMOGLOBIN A1Con 2021 ADA RECOMMENDATION SEE BELOW Normal [facility] Comment on above: Result Comment: ADA RECOMMENDED LIMIT 4.0 - 6.0 ADA THERAPEUTIC TARGET < 7.0 ACTION SUGGESTED > 7.0 Performed By: #### A 1C #### [facility] [address] [place] [address] Dr. Susan Petersen Glucose [Mass/Vol] 120 mg/dL Normal [facility] Comment on above: Performed By: #### A 1C #### [facility] [address] [place] [address] Dr. Susan Petersen HbA1c (Bld) [Mass fraction] 5.8 % Normal 4.5-6.2 [facility] Comment on above: Performed By: #### A 1C #### [facility] [address] [place] [address] Dr. Susan Petersen IRONon 05-20-2022 Iron [Mass/Vol] 74.0 ug/dL Normal 50.0-170.0 [facility] Comment on above: Performed By: #### I JAROD VITAD #### [facility] [address] [place] [address] Dr. Susan Petersen LIPID PROFILEon 05-20-2022 CHOL-HDL RATIO NORM SEE BELOW Normal [facility] Comment on above: Result Comment: 3.3 - 4.4 LOW RISK 4.4 - 7.1 AVERAGE RISK 7.1 - 11.0 MODERATE RISK >11.0 HIGH RISK Performed By: #### T SH, CMP, T7, LIPID #### [facility] [address] [address] [address] Susan Petersen Cholesterol [Mass/Vol] 210 mg/dL Critically high <=200 [facility] Comment on above: Performed By: #### T SH, CMP, T7, LIPID #### [facility] [address] [address] [address] Susan Petersen Cholesterol in HDL [Mass/Vol] 42 mg/dL Normal 40-60 [facility] Comment on above: Performed By: #### T SH, CMP, T7, LIPID #### [facility] [address] [place] [address] Dr. Susan Petersen Cholesterol in LDL [Mass/Vol] 133.2 mg/dL Normal [facility] Comment on above: Performed By: #### T SH, CMP, T7, LIPID #### [facility] [address] [place] [address] Dr. Susan Petersen Cholesterol.total/Cho lesterol in HDL [Mass ratio] 5.0 {ratio} Normal [facility] Comment on above: Performed By: #### T SH, CMP, T7, LIPID #### [facility] [address] [place] [address] Dr. Susan Petersen HDL NORMAL > or = 60 mg/dl - LO W CARDIOVASCULAR RISK <40 mg/dl - HIGH CARDIOVASCULAR RISK Normal [facility] Comment on above: Performed By: #### T SH, CMP, T7, LIPID #### [facility] [address] [place] [address] Dr. Susan Petersen LDL CALC NORMAL SEE BELOW Normal [facility] Comment on above: Result Comment: <100 mg/dl OPTIMAL 100 - 129 mg/dl NEAR OR ABOVE OPTIMAL 130 - 159 mg/dl BORDERLINE HIGH 160 - 189 mg/dl HIGH >190 mg/dl VERY HIGH Performed By: #### T SH, CMP, T7, LIPID #### [facility] [address] [place] [address] Dr. Susan Petersen Triglyceride [Mass/Vol] 174 mg/dL Critically high <=150 [facility] Comment on above: Performed By: #### T SH, CMP, T7, LIPID #### [facility] [address] [address] [address] Susan Petersen VLDL CALC 34.8 mg/dL Normal [facility] Comment on above: Performed By: #### T SH, CMP, T7, LIPID #### [facility] [address] [place] [address] Dr. Susan Petersen PROF 14(COMP METB)on 022 Albumin [Mass/Vol] 3.7 g/dL Normal 3.4-5.0 [facility] Comment on above: Performed By: #### I JAROD VITAD #### [facility] [address] [place] [address] Dr. Susan Petersen Albumin/Globulin [Mass ratio] 0.9 {ratio} Normal [facility] Comment on above: Performed By: #### I JAROD VITAD #### [facility] [address] [place] [address] Dr. Susan Petersen ALP [Catalytic activity/Vol] 64 U/L Normal 46-116 [facility] Comment on above: Performed By: #### I JAROD VITAD #### [facility] [address] [place] [address] Dr. Susan Petersen ALT [Catalytic activity/Vol] 19 U/L Normal 14-59 [facility] Comment on above: Performed By: #### I JAROD VITAD #### [facility] [address] [place] [address] Dr. Susan Petersen Anion gap [Moles/Vol] 10.7 mmol/L Normal [facility] Comment on above: Performed By: #### I JAROD, VITAD #### [facility] [address] [place] [address] Dr. Susan Petersen AST [Catalytic activity/Vol] 12 U/L Critically low 15-37 [facility] Comment on above: Performed By: #### I JAROD, VITAD #### [facility] [address] [address] [address] Susan Petersen Bilirubin [Mass/Vol] 0.5 mg/dL Normal 0.2-1.0 [facility] Comment on above: Performed By: #### I JAROD, VITAD #### [facility] [address] [place] [address] Dr. Susan Petersen Calcium [Mass/Vol] 9.4 mg/dL Normal 8.5-10.1 [facility] Comment on above: Performed By: #### I JAROD, VITAD #### [facility] [address] [place] [address] Dr. Susan Petersen Chloride [Moles/Vol] 103 mmol/L Normal 98-107 [facility] Comment on above: Performed By: #### I JAROD, VITAD #### [facility] [address] [place] [address] Dr. Susan Petersen CO2 [Moles/Vol] 29.6 mmol/L Normal 21.0-32.0 [facility] Comment on above: Performed By: #### I JAROD, VITAD #### [facility] [address] [place] [address] Dr. Susan Petersen Creatinine [Mass/Vol] 1.01 mg/dL Normal 0.55-1.02 [facility] Comment on above: Performed By: #### I JAROD, VITAD #### [facility] [address] [place] [address] Dr. Susan Petersen EGFR-AF BANGLADESHI >60 Normal >=60 [facility] Comment on above: Performed By: #### I JAROD, VITAD #### [facility] [address] [place] [address] Dr. Susan Petersen EGFR-NON AF BANGLADESHI 59 mL/min/1.73m2 Critically low >=60 [facility] Comment on above: Performed By: #### I JAROD, VITAD #### [facility] [address] [place] [address] Dr. Susan Petersen Globulin (S) [Mass/Vol] 4.0 g/dL Normal [facility] Comment on above: Performed By: #### I JAROD, VITAD #### [facility] [address] [address] [address] Susan Petersen Glucose [Mass/Vol] 109 mg/dL Critically high 74-106 [facility] Comment on above: Performed By: #### I JAROD, VITAD #### [facility] [address] [address] [address] Susan Petersen Potassium [Moles/Vol] 4.3 mmol/L Normal 3.5-5.1 [facility] Comment on above: Performed By: #### I JAROD, VITAD #### [facility] [address] [address] [address] Susan Petersen Protein [Mass/Vol] 7.7 g/dL Normal 6.4-8.2 [facility] Comment on above: Performed By: #### I JAROD, VITAD #### [facility] [address] [place] [address] Dr. Susan Petersen Sodium [Moles/Vol] 139 mmol/L Normal 136-145 [facility] Comment on above: Performed By: #### I JAROD VITAD #### [facility] [address] [place] [address] Dr. Susan Petersen Urea nitrogen [Mass/Vol] 14.0 mg/dL Normal 7.0-18.0 [facility] Comment on above: Performed By: #### I JAROD, VITAD #### [facility] [address] [place] [address] Dr. Susan Petersen Urea nitrogen/Creatinine [Mass ratio] 13.9 mg/mg Normal [facility] Comment on above: Performed By: #### I JAROD, VITAD #### [facility] [address] [place] [address] Dr. Susan Petersen TSHon 05-20-2022 TSH 2.578 uIU/mL Normal 0.358-3.740 [facility] Comment on above: Performed By: #### T SH, CMP, T7, LIPID #### [facility] [address] [place] [address] Dr. Susan Petersen UA RANDOM W/MICROSCOPICon BACTERIA NONE SEEN Normal NONE SEEN [facility] Comment on above: Performed By: #### I JAROD, VITAD #### [facility] [address] [place] [address] Dr. Susan Petersen Bilirubin Ql (U) Negative Normal NEGATIVE [facility] Comment on above: Performed By: #### I JAROD, VITAD #### [facility] [address] [place] [address] Dr. Susan Petersen CAST NONE SEEN Normal NONE SEEN [facility] Comment on above: Performed By: #### I JAROD, VITAD #### [facility] [address] [place] [address] Dr. Susan Petersen Clarity (U) CLEAR Normal CLEAR [facility] Comment on above: Performed By: #### I JAROD, VITAD #### [facility] [address] [place] [address] Dr. Susan Petersen Color (U) LT. YELLOW Normal YELLOW [facility] Comment on above: Performed By: #### I JAROD, VITAD #### [facility] [address] [place] [address] Dr. Susan Petersen Crystals LM Nom (Urine sed) NONE SEEN Normal NONE SEEN [facility] Comment on above: Performed By: #### I JAROD, VITAD #### [facility] [address] [place] [address] Dr. Susan Petersen Epithelial cells LM Ql (Urine sed) RARE Normal NONE SEEN /RARE [facility] Comment on above: Performed By: #### I JAROD, VITAD #### [facility] [address] [place] [address] Dr. Susan Petersen Glucose Ql (U) Negative Normal NEGATIVE [facility] Comment on above: Performed By: #### I JAROD, VITAD #### [facility] [address] [place] [address] Dr. Susan Petersen Hemoglobin Ql (U) Negative Normal NEGATIVE [facility] Comment on above: Performed By: #### I JAROD, VITAD #### [facility] [address] [place] [address] Dr. Susan Petersen Ketones Ql (U) Negative Normal NEGATIVE [facility] Comment on above: Performed By: #### I JAROD, VITAD #### [facility] [address] [place] [address] Dr. Susan Petersen LEUKOCYTES Negative Normal NEGATIVE [facility] Comment on above: Performed By: #### I JAROD, VITAD #### [facility] [address] [place] [address] Dr. Susan Petersen MUCOUS NONE SEEN Normal NONE SEEN [facility] Comment on above: Performed By: #### I JAROD, VITAD #### [facility] [address] [place] [address] Dr. Susan Petersen Nitrite Ql (U) Negative Normal NEGATIVE [facility] Comment on above: Performed By: #### I JAROD VITAD #### [facility] [address] [place] [address] Dr. Susan Petersen pH (U) 7.0 [pH] Normal 5-9 [facility] Comment on above: Performed By: #### I JAROD VITAD #### [facility] [address] [place] [address] Dr. Susan Petersen RBC NONE SEEN Abnormal 0-2 [facility] Comment on above: Performed By: #### I JAROD VITAD #### [facility] [address] [place] [address] Dr. Suasn Petersen SPEC GRAVITY <=1.005 Abnormal 1.005-<=1.025 [facility] Comment on above: Performed By: #### I JAROD VITAD #### [facility] [address] [place] [address] Dr. Susan Petersen UA PROTEIN Negative Normal NEGATIVE/ TRACE [facility] Comment on above: Performed By: #### I JAROD VITAD #### [facility] [address] [place] [address] Dr. Susan Petersen Urobilinogen Qn (U) 0.2 {Camila'U}/dL Normal 0.2 - 1. 0 [facility] Comment on above: Performed By: #### I JAROD VITAD #### [facility] [address] [place] [address] Dr. Susan Petersen WBC NONE SEEN Normal NONE SEEN [facility] Comment on above: Performed By: #### I JAROD VITAD #### [facility] [address] [place] [address] Dr. Susan Petersen VITAMIN D 25 OHon 05-20-2022 VIT D 25-OH 54.6 ng/mL Normal [facility] Comment on above: Performed By: #### I JAROD, VITAD #### [facility] [address] [address] [address] Susan Petersen VIT D RANGES SEE BELOW Normal [facility] Comment on above: Result Comment: <20 ng/mL Vit D deficient 20 - <30 ng/mL Vit D insufficient 30 - 100 ng/mL Vit D sufficient >100 ng/mL Potential Toxicity Performed By: #### I JAROD VITAD #### [facility] [address] [place] [address] Dr. Susan Petersen Encounters Encounter Date Encounter Type Care Provider Facility Start: 05-25-2022 Encounter for genera l adult medical examination without abnormal findings DR ROSSI NUNO [facility] Start: 05-21-2022 End: 05-22-[address] ROSSI NUNO Facility:[facility] Start: 05-21-2022 End: 05-22-2022 Encounter for general adult medical examination without abnormal findings DR ROSSI NUNO Facility:[facility] Start: 05-20-2022 End: 05-21-[address] ROSSI NUNO Facility:[facility] Payers Date Payer Category Payer Unknown [id number] 1975 Unknown [id number] 1960 Unknown [id number] Summary Purpose Family History No Family History Records Found Advance Directives No Advanced Directives Records Found Additional Source Comments INFORMATION SOURCE (unrecogn ized section and content) DATE CREATED AUTHOR 05/26/2022 [facility] FOR RECORDS PERTAINING TO PATIENTS WHO ARE OR HAVE BEEN ENROLLED IN A CHEMICAL DEPENDENCY/SUBSTANCEABUSE PROGRAM, SOME INFORMATION MAY BE OMITTED. This clinical summary was aggregated from multiple sources. Caution should be exercised in using it in the provision of clinical care. This summary normalizes information from multiple sources, and as a consequence, information in this document may materially change the coding, format and clinical context of patient data. In addition, data may be omitted in some cases. CLINICAL DECISIONS SHOULD BE BASED ON THE PRIMARY CLINICAL RECORDS. [facility] [employer] [facility]. provides no warranty or guarantee of the accuracy or completeness of information in this document.
[2023-11-26 09:40] LABS: Basophils Absolute Auto 0.1 10^3/uL (0.0-0.1); Basophils Percent Auto 1.4 % (0.2-2.0); Eosinophils Absolute Auto 0.3 10^3/uL (0.0-0.7); Eosinophils Percent Auto 5.3 % (0.9-7.0); Hematocrit 38.7 % (36.0-48.0); Hemoglobin 12.4 g/dL (12.0-16.0); Lymphocytes Absolute Auto 1.8 10^3/uL (1.2-3.8); Lymphocytes Percent Auto 37.2 % (20.5-60.0); Mean Corpuscular Hemoglobin 29.8 pg (26.7-34.0); Mean Platelet Volume 10.1 fL (9.5-13.5); Monocytes Absolute Auto 0.4 10^3/uL (0.3-0.8); Neutrophils Absolute Auto 2.3 10^3/uL (1.4-6.5); Neutrophils Percent Auto 48.1 % (43.0-75.0); Platelet Count 320 10^3/uL (150-450); Red Blood Count 4.16 10^6/uL (4.20-5.40); White Blood Count 4.9 10^3/uL (4.0-11.0)
[2023-11-26 10:00] LABS: Estimated Average Glucose 111 mg/dL; Glycohemoglobin A1C 5.5 % (4.5-6.2)
[2023-11-26 11:36] LABS: Alanine Aminotransferase 20 U/L (14-59); Albumin Globulin Ratio 0.8; Albumin Level 3.3 g/dL (3.4-5.0); Alkaline Phosphatase 59 U/L (46-116); Anion Gap 12.8; Aspartate Amino Transferase 14 U/L (15-37); BUN Creatinine Ratio 16.4; Bilirubin Total 0.3 mg/dL (0.2-1.0); Calcium 9.1 mg/dL (8.5-10.1); Carbon Dioxide 29.2 mmol/L (21.0-32.0); Chloride 103 mmol/L (98-107); Chol HDL Ratio 4.4; Cholesterol 204 mg/dL (<=200); Estimated GFR (African America >60 (>=60); Estimated GFR (Non-African Ame 53 (>=60); Free T3 2.68 pg/mL (2.18-3.98); Globulin 4.2 g/dL; Glucose 107 mg/dL (74-106); HDL Cholesterol 46 mg/dL (40-60); Sodium 141 mmol/L (136-145); Thyroid Stimulating Hormone 2.722 uIU/mL (0.358-3.740); Total Protein 7.5 g/dL (6.4-8.2); Triglycerides 148 mg/dL (<=150); VLDL CHOLESTEROL 29.6 mg/dL
[2023-11-28 13:08] LABS: Insulin 18.5 uIU/mL (2.6-24.9)
== END 2023-11-26 09:26 | disposition home or self-care (01) ==
PROVIDERS: PCP Family Medicine; Visit Provider Family Medicine
DX: Z00.00 Encounter for general adult medical examination without abnormal findings (principal)
CPT/HCPCS: 36415; 80053; 80061; 83036; 83525; 84436; 84443; 84481; 85025

== ENCOUNTER 2024-01-17 14:42 | Outpatient (OUT) | payer OTHER, SELFPAY ==
--- OUTSIDE RECORDS SUMMARY | 2024-01-17 14:50 | XMS_ITS | CCD ---
Author Name Unknown Address [address] [place] [id number] Organization [facility] Care Team Providers Care Rn Manager Name Role Phone DR ROSSI MURRAY Primary Care Unavailable TERRI, DR RICHEY Admitting Unavailable TERRI, DR RICHEY Attending Unavailable TERRI, DR RICHEY Consulting Unavailable MARILYN, DR PRATIK Dugan Consulting Unavailable TERRI, DR RICHEY Consulting Unavailable TERRI, DR RICHEY Primary Care Unavailable TERRI, DR RICHEY Admitting Unavailable TERRI, DR RICHEY Attending Unavailable Rossi Murray Primary Care Physician Fidencio BARLOW Attending Unavailable Rossi Murray Referring Unavailable Allergies Allergy Classification Reported Allergen(s) Allergy Type Date of Onset Reaction(s) Facility (2 sources) Codeine; Translations: [codeine] Drug Allergy 5 [facility] Repository (1 source) traMADol Drug Allergy 5 [facility] Repository (1 source) Codeine; Translations: [codeine] Drug Allergy Nausea and vomiting (disorder) [facility] [place] Medications Current Medications Medication Drug Class(es) Dates Sig (Normalized) Sig (Original) Multi Vitamins oral tablet (1 source) Start: 12-09-2023 take 1 tablet by mouth once daily Multi Vitamins oral tablet 1 tab(s), Oral, Daily, Refill(s) 0 Start Date: 12/09/23 Status: Ordered Probiotic 10 Ultra Strength (1 source) Start: 12-09-2023 take 1 capsule by mouth once daily Probiotic 10 Ultra Strength 1 cap(s), Oral, Daily, Refill(s) 0 Start Date: 12/09/23 Status: Ordered Completed/Discontinued Medications Medication Drug Class(es) Dates Sig (Normalized) Sig (Original) cholecalciferol 0.05 mg oral tablet (1 source) Vitamin D Start: 12-09-2023 take 1 tablet by mouth once daily oxaprozin 600 mg oral tablet (1 source) Nonsteroidal Anti-inflammatory Drug Start: 12-09-2023 oxaprozin 600 mg Tab 1,200 mg = 2 tab(s), Oral, Daily, 0 Refill(s), Refills(s) 0 Start Date: 12/09/23 Status: Ordered pantoprazole 40 mg delayed release oral tablet (1 source) Proton Pump Inhibitor Start: 12-09-[address] Tab 40 mg = 1 tab(s), Oral, Daily, 0 Refill(s), Refills(s) 0 Start Date: 12/09/23 Status: Ordered Problems Problem Classification Problem Date Documented Da te Episodic/Chronic Anxiety disorders (1 source) Anxiety 12-09-2023 Chronic Esophageal disorders (1 source) Gastroesophageal reflux disease 12-09-2023 Chronic Other gastrointestinal disorders (1 source) Irritable bowel syndrome 12-09-2023 Chronic Other gastrointestinal disorders (1 source) Abnormal feces; Translations: [Other fecal abnormalities] Onset: 4 Episodic Other gastrointestinal disorders (1 source) Occult blood in stools 12-09-2023 Episodic Other nutritional; endocrine; and metabolic disorders (1 source) Body mass index 40+ - severely obese 12-24-2023 Chronic Other nutritional; endocrine; and metabolic disorders (1 source) Morbid obesity 12-09-2023 Chronic Other screening for suspected conditions (not mental disorders or infectious disease) (1 source) Encounter for screening mammogram for malignant neoplasm of breast; Translations: [ENC SCR MAMMO MALIG NEOPLASM BREAST] Onset: 2 Episodic Residual codes; unclassified (1 source) Family history of malignant neoplasm of breast; Translations: [FAMILY HX MALIG NEOPLASM OF BREAST] Onset: 2 Episodic Residual codes; unclassified (1 source) Family history of malignant neoplasm of other genital organs; Translations: [FAM HX MALIG NEOPLSM OTH GENIT ORGN] Onset: 2 Episodic Thyroid disorders (1 source) Graves' disease 12-09-2023 Chronic Results Test Name Value Interpretation Reference Range Facility Consent for Procedure/Surger yon 12-28-2023 Consent for Procedure/Surgery [id number] .[id number] Normal [facility] Ambulatory Visit Summaryon 0 12-24-2023 Ambulatory Visit Summary MIREYA CONNER :1975 Visit Date:12/24/2023 Ambulatory Visit Instructions Your Care Team Attending Physician - CAIN WATERS, Fidencio Dugan Primary Care Physician - Terri WATERS, Rossi Referring Physician - Rossi Murray MD This Is Your Medications List Contact prescribing physician if questions or concerns bifidobacterium-lacto bacillus (Probiotic 10 Ultra Strength) cholecalciferol (cholecalciferol 2000 intl units oral tablet (Vitamin D3)) multivitamin (Multi Vitamins oral tablet) oxaprozin (oxaprozin 600 mg Tab) pantoprazole (Pantoprazole [address] Tab) Procedures Performed Endometrial ablation, Tubal ligation. Discharge Vitals Heart Rate (Peripheral) 76 Respiratory Rate 16 Blood Pressure 120/82 Height 182.88 cm Height 72 in Weight 140 kg Weight 308 lb BMI 41.86 Medications What How Much When Instructions Unchanged bifidobacterium-lacto bacillus (Probiotic 10 Ultra Strength) 1 Capsules By Mouth Every day Contact prescribing physician if questions or concerns Unchanged cholecalciferol (cholecalciferol 2000 intl units oral tablet (Vitamin D3)) 1 Tablets By Mouth Every day 1 Unknown, 0 Refill(s) Contact prescribing physician if questions or concerns Unchanged multivitamin (Multi Vitamins oral tablet) 1 Tablets By Mouth Every day Contact prescribing physician if questions or concerns Unchanged oxaprozin (oxaprozin 600 mg Tab) 2 Tablets By Mouth Every day 0 Refill(s) Contact prescribing physician if questions or concerns Unchanged pantoprazole (Pantoprazole [address] Tab) 1 Tablets By Mouth Every day 0 Refill(s) Contact prescribing physician if questions or concerns Medications and Immunizations Administered Not Given influenza virus vaccine, inactivated, Patient Refuses Allergies codeine (Nausea and vomiting) Problems Ongoing - Any problem that you are currently receiving treatment for. Anxiety BMI 40.0-44.9, adult GERD (gastroesophageal reflux disease) Graves' disease IBS (irritable bowel syndrome) Morbid obesity Positive fecal occult blood test Patient Survey You may receive a survey via text or e-mail asking about your office visit. Please share your experience with us by completing your survey. We appreciate your feedback and thank you for choosing us for your care. [place] [facility] Facesheeton 12-24-2023 Facesheet [id number] Normal [facility] Physician Referralon 024 Physician Referral [id number] Normal [facility] CULTURE URINEon 05-22-2022 CULTURE URINE Isolate 1 [...] F Trimethoprim/Sulfamet hoxazole >=320 R F Normal [facility] Comment on above: Performed By: #### U RCX #### [facility] [address] [address] [address] Susan Petersen INSULINon 05-21-2022 Insulin 9.7 uIU/mL Normal 2.6-24.9 [facility] Comment on above: Performed By: #### I NSULIN #### [facility] [address] [address] [address] Susan Petersen MG MAMM SCREEN 3D LIN CADon 05-21-2022 MG MAMM SCREEN 3D LIN CAD Patient: MIREYA CONNER Exam Date: 05/21/2022 : 1975 Gender:F Ordering : DR ROSSI MURRAY . Admission #: [id number] Family : Order #: [id number] CLICK HERE TO VIEW EXAM RADIOLOGY REPORT [...] uterine cancer at age 17. LOCATION: [facility] BREAST COMPOSITION: Heterogeneously dense,which may obscure small [...] M.D. on 05/22/2022 at 14:26 Normal [facility] OCC BLD IMMUNO SCREENon 07-0 OCCULT BLOOD Negative Normal NEGATIVE [facility] Comment on above: Performed By: #### O BSCRN #### [facility] [address] [place] [address] Dr. Susan Petersen CBC AUTO DIFFon 05-20-2022 BASO # 0.1 103/ul Normal 0.0-0.1 [facility] Comment on above: Performed By: #### C BC #### [facility] [address] [place] [address] Dr. Susan Petersen Basophils/100 WBC (Bld) 0.9 % Normal 0.2-2.0 [facility] Comment on above: Performed By: #### C BC #### [facility] [address] [place] [address] Dr. Susan Petersen EO # 0.2 103/ul Normal 0.0-0.7 [facility] Comment on above: Performed By: #### C BC #### [facility] [address] [place] [address] Dr. Susan Petersen Eosinophils/100 WBC (Bld) 3.4 % Normal 0.9-7.0 [facility] Comment on above: Performed By: #### C BC #### [facility] [address] [place] [address] Dr. Susan Petersen Erythrocyte distribution width (RBC) [Ratio] 14.0 % Normal 11.0-15.0 [facility] Comment on above: Performed By: #### C BC #### [facility] [address] [place] [address] Dr. Susan Petersen Hematocrit (Bld) [Volume fraction] 41.2 % Normal 36.0-48.0 [facility] Comment on above: Performed By: #### C BC #### [facility] [address] [place] [address] Dr. Susan Petersen Hemoglobin (Bld) [Mass/Vol] 13.4 g/dL Normal 12.0-16.0 [facility] Comment on above: Performed By: #### C BC #### [facility] [address] [place] [address] Dr. Susan Petersen IG # 0.01 10e3/ul Normal 0.00-0.03 [facility] Comment on above: Performed By: #### C BC #### [facility] [address] [place] [address] Dr. Susan Petersen IG % 0.2 % Normal 0.0-0.5 [facility] Comment on above: Performed By: #### C BC #### [facility] [address] [place] [address] Dr. Susan Petersen LYMPH # 2.0 103/ul Normal 1.2-3.8 [facility] Comment on above: Performed By: #### C BC #### [facility] [address] [place] [address] Dr. Susan Petersen Lymphocytes/100 WBC (Bld) 34.8 % Normal 20.5-60.0 [facility] Comment on above: Performed By: #### C BC #### [facility] [address] [place] [address] Dr. Susan Petersen MANUAL DIFF REQ NO Normal [facility] Comment on above: Performed By: #### C BC #### [facility] [address] [place] [address] Dr. Susan Petersen MCH (RBC) [Entitic mass] 30.1 pg Normal 26.7-34.0 [facility] Comment on above: Performed By: #### C BC #### [facility] [address] [place] [address] Dr. Susan Petersen MCHC (RBC) [Mass/Vol] 32.5 g/dL Normal 29.9-35.2 [facility] Comment on above: Performed By: #### C BC #### [facility] [address] [place] [address] Dr. Susan Petersen MCV (RBC) [Entitic vol] 92.6 fL Normal 81.0-99.0 [facility] Comment on above: Performed By: #### C BC #### [facility] [address] [place] [address] Dr. Susan Petersen MONO # 0.5 103/ul Normal 0.3-0.8 [facility] Comment on above: Performed By: #### C BC #### [facility] [address] [place] [address] Dr. Susan Petersen Monocytes/100 WBC (Bld) 8.3 % Normal 1.7-12.0 [facility] Comment on above: Performed By: #### C BC #### [facility] [address] [place] [address] Dr. Susan Petersen NEUT # 3.1 103/ul Normal 1.4-6.5 [facility] Comment on above: Performed By: #### C BC #### [facility] [address] [place] [address] Dr. Susan Petersen Neutrophils/100 WBC (Bld) 52.4 % Normal 43.0-75.0 [facility] Comment on above: Performed By: #### C BC #### [facility] [address] [place] [address] Dr. Susan Petersen Platelet mean volume (Bld) [Entitic vol] 11.0 fL Normal 9.5-13.5 [facility] Comment on above: Performed By: #### C BC #### [facility] [address] [place] [address] Dr. Susan Petersen PLT 324 103/ul Normal 150-450 [facility] Comment on above: Performed By: #### C BC #### [facility] [address] [place] [address] Dr. Susan Petersen RBC 4.45 106/ul Normal 4.20-5.40 [facility] Comment on above: Performed By: #### C BC #### [facility] [address] [address] [address] Susan Petersen WBC 5.8 103/ul Normal 4.0-11.0 [facility] Comment on above: Performed By: #### C BC #### [facility] [address] [place] [address] Dr. Susan Petersen FREE THYROXINE INDEX T7on FTI 3.66 Normal 1.30-4.50 [facility] Comment on above: Performed By: #### I JAROD VITAD #### [facility] [address] [place] [address] Dr. Susan Petersen T3U 31.0 % Normal 30.0-39.0 [facility] Comment on above: Performed By: #### I JAROD VITAD #### [facility] [address] [place] [address] Dr. Susan Petersen T4 [Mass/Vol] 11.80 ug/dL Normal 4.80-13.90 [facility] Comment on above: Performed By: #### I JAROD VITAD #### [facility] [address] [place] [address] Dr. Susan Petersen GLYCOHEMOGLOBIN A1Con 2021 ADA RECOMMENDATION SEE BELOW Normal [facility] Comment on above: Result Comment: ADA RECOMMENDED LIMIT 4.0 - 6.0 ADA THERAPEUTIC TARGET < 7.0 ACTION SUGGESTED > 7.0 Performed By: #### A 1C #### [facility] [address] [place] [address] Dr. Susan Petersen Glucose [Mass/Vol] 120 mg/dL Normal [facility] Comment on above: Performed By: #### A 1C #### [facility] [address] [place] [address] Dr. Susan Petersen HbA1c (Bld) [Mass fraction] 5.8 % Normal 4.5-6.2 [facility] Comment on above: Performed By: #### A 1C #### [facility] [address] [address] [address] Susan Petersen IRONon 05-20-2022 Iron [Mass/Vol] 74.0 ug/dL Normal 50.0-170.0 [facility] Comment on above: Performed By: #### I ISREAL OLIVERAAD #### [facility] [address] [place] [address] Dr. Susan Petersen LIPID PROFILEon 05-20-2022 CHOL-HDL RATIO NORM SEE BELOW Normal [facility] Comment on above: Result Comment: 3.3 - 4.4 LOW RISK 4.4 - 7.1 AVERAGE RISK 7.1 - 11.0 MODERATE RISK >11.0 HIGH RISK Performed By: #### T SH, CMP, T7, LIPID #### [facility] [address] [address] [address] Susan Petersen Cholesterol [Mass/Vol] 210 mg/dL Critically high <=200 [facility] Comment on above: Performed By: #### T SH, CMP, T7, LIPID #### [facility] [address] [place] [address] Dr. Susan Petersen Cholesterol in HDL [Mass/Vol] 42 mg/dL Normal 40-60 [facility] Comment on above: Performed By: #### T SH, CMP, T7, LIPID #### [facility] [address] [address] [address] Susan Petersen Cholesterol in LDL [Mass/Vol] 133.2 mg/dL Normal [facility] Comment on above: Performed By: #### T SH, CMP, T7, LIPID #### [facility] [address] [place] [address] Dr. Susan Petersen Cholesterol.total/Cho lesterol in HDL [Mass ratio] 5.0 {ratio} Normal [facility] Comment on above: Performed By: #### T SH, CMP, T7, LIPID #### [facility] [address] [place] [address] Dr. Susan Petersen HDL NORMAL > or = 60 mg/dl - LO W CARDIOVASCULAR RISK <40 mg/dl - HIGH CARDIOVASCULAR RISK Normal [facility] Comment on above: Performed By: #### T SH, CMP, T7, LIPID #### [facility] [address] [place] [address] Dr. Susan Petersen LDL CALC NORMAL SEE BELOW Normal [facility] Comment on above: Result Comment: <100 mg/dl OPTIMAL 100 - 129 mg/dl NEAR OR ABOVE OPTIMAL 130 - 159 mg/dl BORDERLINE HIGH 160 - 189 mg/dl HIGH >190 mg/dl VERY HIGH Performed By: #### T SH, CMP, T7, LIPID #### [facility] [address] [place] [address] Dr. Susan Petersen Triglyceride [Mass/Vol] 174 mg/dL Critically high <=150 [facility] Comment on above: Performed By: #### T SH, CMP, T7, LIPID #### [facility] [address] [place] [address] Dr. Susan Petersen VLDL CALC 34.8 mg/dL Normal [facility] Comment on above: Performed By: #### T SH, CMP, T7, LIPID #### [facility] [address] [place] [address] Dr. Susan Petersen PROF 14(COMP METB)on 022 Albumin [Mass/Vol] 3.7 g/dL Normal 3.4-5.0 [facility] Comment on above: Performed By: #### I JAROD VITAD #### [facility] [address] [place] [address] Dr. Susan Petersen Albumin/Globulin [Mass ratio] 0.9 {ratio} Normal [facility] Comment on above: Performed By: #### I JAROD VITAD #### [facility] [address] [place] [address] Dr. Susan Petersen ALP [Catalytic activity/Vol] 64 U/L Normal 46-116 [facility] Comment on above: Performed By: #### I JACKIE OLIVERA #### [facility] [address] [place] [address] Dr. Susan Petersen ALT [Catalytic activity/Vol] 19 U/L Normal 14-59 [facility] Comment on above: Performed By: #### I JAROD, VITAD #### [facility] [address] [place] [address] Dr. Susan Petersen Anion gap [Moles/Vol] 10.7 mmol/L Normal [facility] Comment on above: Performed By: #### I JAROD, VITAD #### [facility] [address] [place] [address] Dr. Susan Petersen AST [Catalytic activity/Vol] 12 U/L Critically low 15-37 [facility] Comment on above: Performed By: #### I JAROD VITAD #### [facility] [address] [place] [address] Dr. Susan Petersen Bilirubin [Mass/Vol] 0.5 mg/dL Normal 0.2-1.0 [facility] Comment on above: Performed By: #### Autumn OLIVERA VITAD #### [facility] [address] [place] [address] Dr. Susan Petersen Calcium [Mass/Vol] 9.4 mg/dL Normal 8.5-10.1 [facility] Comment on above: Performed By: #### Autumn OLIVERA VITAD #### [facility] [address] [place] [address] Dr. Susan Petersen Chloride [Moles/Vol] 103 mmol/L Normal 98-107 [facility] Comment on above: Performed By: #### Autumn OLIVERA VITAD #### [facility] [address] [place] [address] Dr. Susan Petersen CO2 [Moles/Vol] 29.6 mmol/L Normal 21.0-32.0 [facility] Comment on above: Performed By: #### Autumn OLIVERA, VITAD #### [facility] [address] [place] [address] Dr. Susan Petersen Creatinine [Mass/Vol] 1.01 mg/dL Normal 0.55-1.02 [facility] Comment on above: Performed By: #### Autumn OLIVERA VITAD #### [facility] [address] [address] [address] Susan Petersen EGFR-AF BOLIVIAN >60 Normal >=60 [facility] Comment on above: Performed By: #### I JAROD, VITAD #### [facility] [address] [place] [address] Dr. Susan Petersen EGFR-NON AF BOLIVIAN 59 mL/min/1.73m2 Critically low >=60 [facility] Comment on above: Performed By: #### I JAROD, VITAD #### [facility] [address] [place] [address] Dr. Susan Petersen Globulin (S) [Mass/Vol] 4.0 g/dL Normal [facility] Comment on above: Performed By: #### I JAROD, VITAD #### [facility] [address] [place] [address] Dr. Susan Petersen Glucose [Mass/Vol] 109 mg/dL Critically high 74-106 T [facility] Comment on above: Performed By: #### I JAROD, VITAD #### [facility] [address] [place] [address] Dr. Susan Petersen Potassium [Moles/Vol] 4.3 mmol/L Normal 3.5-5.1 [facility] Comment on above: Performed By: #### I JAROD, VITAD #### [facility] [address] [place] [address] Dr. Susan Petersen Protein [Mass/Vol] 7.7 g/dL Normal 6.4-8.2 [facility] Comment on above: Performed By: #### I JAROD, VITAD #### [facility] [address] [place] [address] Dr. Susan Petersen Sodium [Moles/Vol] 139 mmol/L Normal 136-145 [facility] Comment on above: Performed By: #### I JAROD, VITAD #### [facility] [address] [place] [address] Dr. Susan Petersen Urea nitrogen [Mass/Vol] 14.0 mg/dL Normal 7.0-18.0 [facility] Comment on above: Performed By: #### I JAROD, VITAD #### [facility] [address] [place] [address] Dr. Susan Petersen Urea nitrogen/Creatinine [Mass ratio] 13.9 mg/mg Normal [facility] Comment on above: Performed By: #### I JAROD, VITAD #### [facility] [address] [place] [address] Dr. Susan Petersen TSHon 05-20-2022 TSH 2.578 uIU/mL Normal 0.358-3.740 [facility] Comment on above: Performed By: #### T SH, CMP, T7, LIPID #### [facility] [address] [place] [address] Dr. Susan Petersen UA RANDOM W/MICROSCOPICon BACTERIA NONE SEEN Normal NONE SEEN [facility] Comment on above: Performed By: #### I JAROD, VITAD #### [facility] [address] [place] [address] Dr. Susan Petersen Bilirubin Ql (U) Negative Normal NEGATIVE [facility] Comment on above: Performed By: #### I JAROD, VITAD #### [facility] [address] [place] [address] Dr. Susan Petersen CAST NONE SEEN Normal NONE SEEN [facility] Comment on above: Performed By: #### I JAROD, VITAD #### [facility] [address] [place] [address] Dr. Susan Petersen Clarity (U) CLEAR Normal CLEAR [facility] Comment on above: Performed By: #### I JAROD, VITAD #### [facility] [address] [place] [address] Dr. Susan Petersen Color (U) LT. YELLOW Normal YELLOW The [facility] Comment on above: Performed By: #### I JAROD, VITAD #### [facility] [address] [place] [address] Dr. Susan Petersen Crystals LM Nom (Urine sed) NONE SEEN Normal NONE SEEN [facility] Comment on above: Performed By: #### I JAROD, VITAD #### [facility] [address] [place] [address] Dr. Susan Petersen Epithelial cells LM Ql (Urine sed) RARE Normal NONE SEEN /RARE The [facility] Comment on above: Performed By: #### I JAROD, VITAD #### [facility] [address] [place] [address] Dr. Susan Petersen Glucose Ql (U) Negative Normal NEGATIVE The [place] Comment on above: Performed By: #### I JAROD, VITAD #### [facility] [address] [place] [address] Dr. Susan Petersen Hemoglobin Ql (U) Negative Normal NEGATIVE [facility] Comment on above: Performed By: #### I JAROD, VITAD #### [facility] [address] [place] [address] Dr. Susan Petersen Ketones Ql (U) Negative Normal NEGATIVE [facility] [place] Comment on above: Performed By: #### I JAROD, VITAD #### [facility] [address] [place] [address] Dr. Susan Petersen LEUKOCYTES Negative Normal NEGATIVE [facility] Comment on above: Performed By: #### I JAROD, VITAD #### [facility] [address] [place] [address] Dr. Susan Petersen MUCOUS NONE SEEN Normal NONE SEEN [facility] Comment on above: Performed By: #### I JAROD, VITAD #### [facility] [address] [place] [address] Dr. Susan Petersen Nitrite Ql (U) Negative Normal NEGATIVE [facility] [place] Comment on above: Performed By: #### I JAROD VITAD #### [facility] [address] [place] [address] Dr. Susan Petersen pH (U) 7.0 [pH] Normal 5-9 [facility] Comment on above: Performed By: #### I JAROD, VITAD #### [facility] [address] [place] [address] Dr. Susan Petersen RBC NONE SEEN Abnormal 0-2 The [facility] Comment on above: Performed By: #### I JAROD, VITAD #### [facility] [address] [place] [address] Dr. Susan Petersen SPEC GRAVITY <=1.005 Abnormal 1.005-<=1.025 [facility] Comment on above: Performed By: #### I JAROD, VITAD #### [facility] [address] [place] [address] Dr. Susan Petersen UA PROTEIN Negative Normal NEGATIVE/ TRACE The [facility] Comment on above: Performed By: #### I JAROD, VITAD #### [facility] [address] [place] [address] Dr. Susan Petersen Urobilinogen Qn (U) 0.2 {Camila'U}/dL Normal 0.2 - 1. 0 [facility] Comment on above: Performed By: #### I JAROD VITAD #### [facility] [address] [place] [address] Dr. Susan Petersen WBC NONE SEEN Normal NONE SEEN [facility] Comment on above: Performed By: #### I JAROD VITAD #### [facility] [address] [place] [address] Dr. Susan Petersen VITAMIN D 25 OHon 05-20-2022 VIT D 25-OH 54.6 ng/mL Normal The [facility] Comment on above: Performed By: #### I JAROD VITAD #### [facility] [address] [place] [address] Dr. Susan Petersen VIT D RANGES SEE BELOW Normal The [facility] Comment on above: Result Comment: <20 ng/mL Vit D deficient 20 - <30 ng/mL Vit D insufficient 30 - 100 ng/mL Vit D sufficient >100 ng/mL Potential Toxicity Performed By: #### I JAROD VITAD #### [facility] [address] [place] [address] Dr. Susan Petersen Vital Signs Date Time Vital Sign Value Performing Clinician Faci lity 12-24-2023 13:25-0500 Blood Pressure Location Fidencio BARLOW [facility] 12-24-2023 13:25-0500 Diastolic blood pressure 82 mm[Hg] Fidencio BARLOW [facility] 12-24-2023 13:25-0500 Heart rate 76 /min Fidencio BARLOW [facility] 12-24-2023 13:25-0500 Respiratory rate 16 /min Fidencio CAIN [facility] 12-24-2023 13:25-0500 Systolic blood pressure 120 mm[Hg] Fidencio MANNL [facility] Encounters Encounter Date Encounter Type Care Provider Facility Start: 12-24-2023 End: 12-25-2023 ambulatory Fidencio BARLOW Facility:[facility] Start: 12-24-2023 End: 12-24-2023 Patient encounter procedure Fidencio BARLOW [facility] Start: 11-30-2023 ambulatory Fidencio BARLOW Facility:[facility] Start: 05-25-2022 Encounter for genera l adult medical examination without abnormal findings DR ROSSI MURRAY [facility] Start: 05-21-2022 End: 05-22-[address] ROSSI MURRAY Facility:[facility] Start: 05-21-2022 End: 05-22-2022 Encounter for general adult medical examination without abnormal findings DR ROSSI MURRAY Facility:[facility] Start: 05-20-2022 End: 05-21-[address] ROSSI MURRAY Facility:[facility] Procedures Date Procedure Procedure Detail Performing Clinician Endometrial ablation Fidencio BARLOW Ligation of fallopian tube Kay nash CAIN Immunizations Immunization Date Immunization Notes Care Provider Fa avera [facility] 10-28-2021 SARS-CoV-2 (COVID-19 ) mRNA BNT-162b2 vax Fidencio BARLOW [facility] 03-12-2021 SARS-CoV-2 (COVID-19 ) Ad26 vaccine, recombinant Fidencio MANNL [facility] Comment on above: Result Comment: 2023: [id number] NEGATED: Highlighted row has not occurred!12-24-2023 influenza virus vaccine, unspecified formulation Fidencio MANNL [facility] Payers Date Payer Category Payer Unknown [id number] [id number] [id number] 1975 Unknown [id number] 1974 Unknown [id number] 1959 Unknown [id number] Social History Date Type Detail Facility Start: 12-24-2023 Tobacco smoking status Heavy t obacco smoker (finding) [facility] Tobacco smoking status Never [facility] Sex Assigned At Female [facility] Functional Status Date Assessment Result Facility 12-24-2023 Functional Status N/A [facility] Clinical Note 12-24-2023 Note Date & Type Note Facility 12-24-2023 Note Chief Complaint consultation for positive occult stool HPI Staff 48 year old female presents on consultation from Dr. Murray for positive occult stool. Denies abdominal or rectal pain. No rectal bleeding or change in bowel habits. Denies nausea or vomiting. No unexplained weight loss. Never had colonoscopy in the past. No known family history of colon cancer. History of Present Illness 48 yo female with h/o Grave's disease, GERD, referred for positive fecal occult blood; denies change in bms or blood in stools, no abd complaints; abd operations significant for tubal ligation, no previous colonoscopy; on Oxaprozin daily, no asa, no SBE prophylaxis; smokes daily; no fmhx of GI malignancy or IBD. Review of Systems PHQ Score Initial Depression Screen Score: 0 SCORE ROS - Provider Constitutional: no fever, no sweats, no weight loss. Eyes: yes glasses, no blurred vision, no visual loss. ENMT: no dentures, no hoarseness, no swallowing difficulties, no hearing loss, no ear infection(s), no nose bleeds. Cardiovascular: normal blood pressure, no chest pain, regular heartbeat, no heart murmur. Respiratory: no shortness of breath, no cough, no asthma, no wheezing. Gastrointestinal: no nausea, no vomiting, no diarrhea, no constipation, no blood in stool, no change in bowel habits, no abdominal pain, no hepatitis. Genitourinary: no kidney stones, no urine infection, no dysuria. Musculoskeletal: no pain, no weakness. Skin: no changing moles, no rash, no skin lumps. Neurologic: no seizures, no epilepsy, no headache. Psychiatric: no emotional or psychiatric problem. Heme/Lymph: no bleeding problems, no anemia, no blood clots, no transfusions. Allergy/Immunologic: no swollen lymph nodes/glands, no IV drug abuse. Other: Additional ROS info: Except as noted in the above Review of Systems and in the History of Present Illness, all other systems have been reviewed and are negative or noncontributory. Physical Exam Vitals & Measurements HR: 76(Peripheral) RR: 16 BP: 120/82 HT: 72 in HT: 182.88 cm WT: 140 kg WT: 308 lb BMI: 41.86 HEENT: normal conjunctiva, sclera clear, no scleral icterus, EOM intact, PERRLA, oral mucosa moist without lesions. Neck: trachea midline, no mass, symmetric, no thyromegaly or nodules, no adenopathy Respiratory: lungs CTA, respirations non labored. Cardiovascular: regular rate and rhythm, no murmur, no pedal edema or varicosities. Gastrointestinal: obese, soft, non distended, no tenderness, no masses, no palpable hernias, diastasis recti no, no hepatosplenomegaly; normal bs Lymphatic: no cervical adenopathy, no supraclavicular adenopathy. Musculoskeletal: normal gait, digits and nails without infection, nodes, cyanosis, clubbing. Skin: no rashes, no lesions, no ulcers, no subcutaneous nodules, induration. Psychiatric/Neuro: oriented to time, place, person, judgement normal, affect appropriate for age, insight intact, no focal deficits. Tests: labs reviewed,, review of old records completed , Discussed surgical options, risks, and possible complications with patient. Assessment/Plan 1. Positive fecal occult blood test (R19.5: Other fecal abnormalities) plan colonoscopy under anesthesia, informed consent obtained. Follow-up No qualifying data available Problem List/Past Medical History Ongoing Anxiety BMI 40.0-44.9, adult GERD (gastroesophageal reflux disease) Graves' disease IBS (irritable bowel syndrome) Morbid obesity Positive fecal occult blood test Historical No qualifying data Procedure/Surgical History Endometrial ablation, Tubal ligation. Medications cholecalciferol 2000 intl units oral tablet (Vitamin D3), 50 mcg= 1 tab(s), Oral, Daily Multi Vitamins oral tablet, 1 tab(s), Oral, Daily oxaprozin 600 mg Tab, 1200 mg= 2 tab(s), Oral, Daily Pantoprazole [address] Tab, 40 mg= 1 tab(s), Oral, Daily Probiotic 10 Ultra Strength, 1 cap(s), Oral, Daily Allergies codeine (Nausea and vomiting) Social History Alcohol - Denies Alcohol Use, 12/24/2023 Substance Abuse Current, Marijuana, 1-2 times per week, 12/24/2023 Tobacco 10 or more cigarettes (1/2 pack or more)/day in last 30 days Tobacco Use:. Never Smokeless Tobacco Use:. Cigarettes, 1 per day. Started age 14.0 Years. Yes, 12/24/2023 Family History Aneurysm: Father. Heart disease: Mother. Immunizations Vaccine Date Status Comments influenza virus vaccine, inactivated - Not Given Patient Refuses SARS-CoV-2 (COVID-19) mRNA BNT-162b2 vax 10/28/2021 Recorded SARS-CoV-2 (COVID-19) Ad26 vaccine 03/12/2021 Recorded 2023-12-09: TPV40 [facility] Comment on above: Result Comment: Elec tronically Signed By: CAIN WATERS, Fidencio Tovar.abby\Date and Time Signed: 12/24/23 14:17 EST Evaluation + Plan note Note Date & Type Note Facility Evaluation + Plan note No data available for this section [facility] Discharge instructions Note Date & Type Note Facility Hospital Discharge instructions No data available for this section [facility] Progress note Note Date & Type Note Facility Progress note No data available for this section [facility] Summary Purpose Family History No Family History Records Found No data available for this section No Family History Records Found Advance Directives No Advanced Directives Records FoundNo Advanced Directives Records Found Additional Source Comments INFORMATION SOURCE (unrecogn ized section and content) DATE CREATED AUTHOR 05/26/2022 [facility] DATE CREATED AUTHOR AUTHOR'S ORGANIZ ATION 12/29/2023 [facility] Patient Care team lionel n (unrecognized section and content) Personnel Name: Rossi Murray MD Address: Address: [address] [place] [address] FOR RECORDS PERTAINING TO PATIENTS WHO ARE [...] BE BASED ON THE PRIMARY CLINICAL RECORDS. [employer] provides no warranty or guarantee of the accuracy or completeness of information in this document.
== END 2024-01-17 14:43 | disposition home or self-care (01) ==
LOC: PST 14:42
PROVIDERS: PCP Family Medicine; Visit Provider Surgery
DX: Z01.818 Encounter for other preprocedural examination (principal); R19.5 Other fecal abnormalities

== ENCOUNTER 2024-01-26 06:33 | Day surgery (SDC) | payer OTHER, SELFPAY ==
--- NOTE | 2024-01-26 | OP_ITS ---
OPERATION DATE: 01/26/2024 PREOPERATIVE DIAGNOSIS: Positive fecal occult blood. POSTOPERATIVE DIAGNOSIS: Redundant colon. PROCEDURE: Colonoscopy to cecum. SURGEON: Fidencio Valencia M.D. ANESTHESIA: Monitored anesthesia care. ESTIMATED BLOOD LOSS: Zero. INDICATIONS AND CONSENT: Patient is a 48-year-old female with a recent positive fecal occult blood. Indications, risks, benefits, alternatives of proceeding with colonoscopy were explained extensively to the patient, including the risks of bleeding, colon perforation or anesthetic complications. All of her questions were answered. Informed consent was obtained. PROCEDURE: Patient brought to the operating room, placed in the left lateral decubitus position. Monitored anesthesia care was provided. Rectal exam was performed which showed no masses or blood. The scope was inserted into the anal canal. Under direct visualization was advanced. With the aid of abdominal compression and positional changes, it was able to be advanced to the cecum. Patient did have a markedly redundant colon with spasm, as well as a fair prep with some brown liquid stool throughout the colon, that was only able to partially be irrigated clear. Cecal markings were identified. Upon withdrawal of the scope, mucosal surfaces were carefully examined. There were no mass lesions or polyps. No inflammatory changes or ulcerations. No significant diverticulosis. There was redundancy of the colon with spasm, as well as some areas that were poorly visualized due to large amounts of liquid brown stool. The scope was retroflexed in the anal canal. There was no significant hemorrhoidal disease. Scope was then withdrawn. Patient tolerated procedure well, was sent to recovery room in good condition. Follow up colonoscopy likely in five years. CC: Catalino Moya
--- OUTSIDE RECORDS SUMMARY | 2024-01-26 06:36 | XMS_ITS | CCD ---
Author Name Unknown Address [address] [place] [id number] Organization [facility] Care Team Providers Care Vacuum Pan Tender Name Role Phone DR ROSSI MURRAY Primary Care Unavailable NURYS, DR RICHEY Admitting Unavailable NURYS, DR RICHEY Attending Unavailable NURYS, DR RICHEY Consulting Unavailable MARILYN, DR PRATIK Dugan Consulting Unavailable NURYS, DR RICHEY Consulting Unavailable NURYS, DR RICHEY Primary Care Unavailable NURYS, DR RICHEY Admitting Unavailable NURYS, DR RICHEY Attending Unavailable Rossi Murray Primary Care Physician Fidencio BARLOW Attending Unavailable Rossi Murray Referring Unavailable Allergies Allergy Classification Reported Allergen(s) Allergy Type Date of Onset Reaction(s) Facility (2 sources) Codeine; Translations: [codeine] Drug Allergy 5 [facility] Repository (1 source) traMADol Drug Allergy 5 [facility] Repository (1 source) Codeine; Translations: [codeine] Drug Allergy Nausea and vomiting (disorder) General [facility] [place] Medications Current Medications Medication Drug Class(es) Dates [...] Test Name Value Interpretation Reference Range Facility Insurance Correspondenceon 0 01-17-2024 Insurance Correspondence [id number]# 1.00TIFF Normal [facility] Consent for Procedure/Surger yon 12-28-2023 Consent for Procedure/Surgery [id number] #1.00TIFF [place] [facility] Ambulatory Visit Summaryon 0 12-24-2023 Ambulatory Visit Summary MIREYA CONNER :1975 Visit Date:12/24/2023 Ambulatory Visit Instructions Your Care Team Attending Physician - CAIN WATERS, Fidencio Dugan Primary Care Physician - Rossi Murray MD Referring Physician - Rossi Murray MD This Is Your Medications List Contact prescribing physician if questions or concerns bifidobacterium-lact obacillus (Probiotic 10 Ultra Strength) cholecalciferol (cholecalciferol 2000 [...] Medications What How Much When Instructions Unchanged bifidobacterium-lact obacillus (Probiotic 10 Ultra Strength) 1 Capsules By [...] you for choosing us for your care. Normal [facility] Facesheeton 12-24-2023 Facesheet [id number]#1.00TIFF Normal [facility] Physician Referralon 024 Physician Referral [id number]# 1.00TIFF Normal [facility] CULTURE URINEon 05-22-2022 CULTURE URINE Isolate 1 Escherichia coli 40,000 cfu/ml of ORGANISM 1 Escherichia coli ANTIBIOTIC M.I.C RX STATUS Ampicillin >=32 R F Ampicillin/Sulbactam 4 S F Piperacillin/Tazobac bliss <=4 S F Cefazolin <=4 S F Ceftazidime <=1 S F Ceftriaxone <=1 S F Ertapenem <=0.5 S F Imipenem <=0.25 S F Amikacin <=2 S F Gentamicin <=1 S F Tobramycin <=1 S F Ciprofloxacin <=0.25 S F Levofloxacin <=0.12 S F Nitrofurantoin <=16 S F Trimethoprim/Sulfame thoxazole >=320 R F Normal [facility] Comment on above: Performed By: #### U RCX #### [facility] Laboratory [address] [place] [address] Dr. Susan Petersen INSULINon 05-21-2022 Insulin 9.7 uIU/mL Normal 2.6-24.9 [facility] Comment on above: Performed By: #### I NSULIN #### [facility] Laboratory [address] [address] [address] Susan Petersen MG MAMM SCREEN 3D LIN CADon 05-21-2022 MG MAMM SCREEN 3D LIN CAD Patient: MIREYA CONNER Exam Date: 05/21/2022 : 1975 Gender:F Ordering : DR ROSSI MURRAY . Admission #: [id number] Family : Order #: [id number] CLICK HERE TO VIEW EXAM RADIOLOGY REPORT [...] uterine cancer at age 17. LOCATION: [facility] BREAST COMPOSITION: Heterogeneously dense,which may obscure [...] M.D. on 05/22/2022 at 14:26 Normal [facility] OCC BLD IMMUNO SCREENon 07-0 OCCULT BLOOD Negative Normal NEGATIVE [facility] Comment on above: Performed By: #### O BSCRN #### [facility] [address] [place] [address] Dr. Susan Petersen CBC AUTO DIFFon 05-20-2022 BASO # 0.1 103/ul Normal 0.0-0.1 [facility] Comment on above: Performed By: #### C BC #### [facility] [address] [place] [address] Dr. Susan Petersen Basophils/100 WBC (Bld) 0.9 % Normal 0.2-2.0 [facility] Comment on above: Performed By: #### C BC #### [facility] [address] [place] [address] Dr. Susan Petersen EO # 0.2 103/ul Normal 0.0-0.7 [facility] Comment on above: Performed By: #### C BC #### [facility] [address] [place] [address] Dr. Susan Petersen Eosinophils/100 WBC (Bld) 3.4 % Normal 0.9-7.0 [facility] Comment on above: Performed By: #### C BC #### [facility] [address] [place] [address] Dr. Susan Petersen Erythrocyte distribution width (RBC) [Ratio] 14.0 % Normal 11.0-15.0 [facility] Comment on above: Performed By: #### C BC #### [facility] [address] [place] [address] Dr. Susan Petersen Hematocrit (Bld) [Volume fraction] 41.2 % Normal 36.0-48.0 [facility] Comment on above: Performed By: #### C BC #### [facility] [address] [place] [address] Dr. Susan Petersen Hemoglobin (Bld) [Mass/Vol] 13.4 g/dL Normal 12.0-16.0 [facility] Comment on above: Performed By: #### C BC #### [facility] [address] [place] [address] Dr. Susan Petersen IG # 0.01 10e3/ul Normal 0.00-0.03 [facility] Comment on above: Performed By: #### C BC #### [facility] [address] [place] [address] Dr. Susan Petersen IG % 0.2 % Normal 0.0-0.5 [facility] Comment on above: Performed By: #### C BC #### [facility] [address] [place] [address] Dr. Susan Petersen LYMPH # 2.0 103/ul Normal 1.2-3.8 [facility] Comment on above: Performed By: #### C BC #### [facility] [address] [place] [address] Dr. Susan Petersen Lymphocytes/100 WBC (Bld) 34.8 % Normal 20.5-60.0 [facility] Comment on above: Performed By: #### C BC #### [facility] [address] [place] [address] Dr. Susan Petersen MANUAL DIFF REQ NO Normal [facility] Comment on above: Performed By: #### C BC #### [facility] [address] [address] [address] Susan Petersen MCH (RBC) [Entitic mass] 30.1 pg Normal 26.7-34.0 [facility] Comment on above: Performed By: #### C BC #### [facility] [address] [place] [address] Dr. Susan Petersen MCHC (RBC) [Mass/Vol] 32.5 g/dL Normal 29.9-35.2 [facility] Comment on above: Performed By: #### C BC #### [facility] [address] [place] [address] Dr. Susan Petersen MCV (RBC) [Entitic vol] 92.6 fL Normal 81.0-99.0 [facility] Comment on above: Performed By: #### C BC #### [facility] [address] [place] [address] Dr. Susan Petersen MONO # 0.5 103/ul Normal 0.3-0.8 [facility] Comment on above: Performed By: #### C BC #### [facility] [address] [place] [address] Dr. Susan Petersen Monocytes/100 WBC (Bld) 8.3 % Normal 1.7-12.0 [facility] Comment on above: Performed By: #### C BC #### [facility] [address] [place] [address] Dr. Susan Petersen NEUT # 3.1 103/ul Normal 1.4-6.5 [facility] Comment on above: Performed By: #### C BC #### [facility] [address] [place] [address] Dr. Susan Petersen Neutrophils/100 WBC (Bld) 52.4 % Normal 43.0-75.0 [facility] Comment on above: Performed By: #### C BC #### [facility] [address] [place] [address] Dr. Susan Petersen Platelet mean volume (Bld) [Entitic vol] 11.0 fL Normal 9.5-13.5 [facility] Comment on above: Performed By: #### C BC #### [facility] [address] [address] [address] Susan Petersen PLT 324 103/ul Normal 150-450 [facility] Comment on above: Performed By: #### C BC #### [facility] [address] [address] [address] Susan Petersen RBC 4.45 106/ul Normal 4.20-5.40 [facility] Comment on above: Performed By: #### C BC #### [facility] [address] [address] [address] Susan Petersen WBC 5.8 103/ul Normal 4.0-11.0 [facility] Comment on above: Performed By: #### C BC #### [facility] [address] [place] [address] Dr. Susan Petersen FREE THYROXINE INDEX T7on FTI 3.66 Normal 1.30-4.50 [facility] Comment on above: Performed By: #### I JAROD VITAD #### [facility] [address] [place] [address] Dr. Susan Petersen T3U 31.0 % Normal 30.0-39.0 [facility] Comment on above: Performed By: #### I JAROD VITAD #### [facility] [address] [place] [address] Dr. Susan Petersen T4 [Mass/Vol] 11.80 ug/dL Normal 4.80-13.90 [facility] Comment on above: Performed By: #### I JAROD VITAD #### [facility] [address] [place] [address] Dr. Susan Petersen GLYCOHEMOGLOBIN A1Con 2021 ADA RECOMMENDATION SEE BELOW Normal [facility] Comment on above: Result Comment: ADA RECOMMENDED LIMIT 4.0 - 6.0 ADA THERAPEUTIC TARGET < 7.0 ACTION SUGGESTED > 7.0 Performed By: #### A 1C #### [facility] [address] [place] [address] Dr. Susan Petersen Glucose [Mass/Vol] 120 mg/dL Normal [facility] Comment on above: Performed By: #### A 1C #### [facility] [address] [address] [address] Susan Petersen HbA1c (Bld) [Mass fraction] 5.8 % Normal 4.5-6.2 [facility] Comment on above: Performed By: #### A 1C #### [facility] [address] [address] [address] Susan Petersen IRONon 05-20-2022 Iron [Mass/Vol] 74.0 ug/dL Normal 50.0-170.0 [facility] Comment on above: Performed By: #### I JAROD VITAD #### [facility] [address] [address] [address] Susan Petersen LIPID PROFILEon 05-20-2022 CHOL-HDL RATIO NORM SEE BELOW Normal [facility] Comment on above: Result Comment: 3.3 - 4.4 LOW RISK 4.4 - 7.1 AVERAGE RISK 7.1 - 11.0 MODERATE RISK >11.0 HIGH RISK Performed By: #### T SH, CMP, T7, LIPID #### [facility] [address] [address] [address] Susan Petersen Cholesterol [Mass/Vol] 210 mg/dL Critically high <=200 [facility] Comment on above: Performed By: #### T SH, CMP, T7, LIPID #### [facility] [address] [address] [address] Susan Petersen Cholesterol in HDL [Mass/Vol] 42 mg/dL Normal 40-60 [facility] Comment on above: Performed By: #### T SH, CMP, T7, LIPID #### [facility] [address] [address] [address] Susan Petersen Cholesterol in LDL [Mass/Vol] 133.2 mg/dL Normal [facility] Comment on above: Performed By: #### T SH, CMP, T7, LIPID #### [facility] [address] [address] [address] Susan Petersen Cholesterol.total/Chol esterol in HDL [Mass ratio] 5.0 {ratio} Normal [facility] Comment on above: Performed By: #### T SH, CMP, T7, LIPID #### [facility] [address] [address] [address] Susan Petersen HDL NORMAL > or = 60 mg/dl - LOW CARDIOVASCULAR RISK <40 mg/dl - HIGH CARDIOVASCULAR RISK Normal [facility] Comment on above: Performed By: #### T SH, CMP, T7, LIPID #### [facility] [address] [address] [address] Susan Petersen LDL CALC NORMAL SEE BELOW Normal [facility] Comment on above: Result Comment: <100 mg/dl OPTIMAL 100 - 129 mg/dl NEAR OR ABOVE OPTIMAL 130 - 159 mg/dl BORDERLINE HIGH 160 - 189 mg/dl HIGH >190 mg/dl VERY HIGH Performed By: #### T SH, CMP, T7, LIPID #### [facility] [address] [address] [address] Susan Petersen Triglyceride [Mass/Vol] 174 mg/dL Critically high <=150 [facility] Comment on above: Performed By: #### T SH, CMP, T7, LIPID #### [facility] [address] [address] [address] Susan Petersen VLDL CALC 34.8 mg/dL Normal [facility] Comment on above: Performed By: #### T SH, CMP, T7, LIPID #### [facility] [address] [address] [address] Susan Petersen PROF 14(COMP METB)on 022 Albumin [Mass/Vol] 3.7 g/dL Normal 3.4-5.0 [facility] Comment on above: Performed By: #### I JAROD VITAD #### [facility] [address] [address] [address] Susan Petersen Albumin/Globulin [Mass ratio] 0.9 {ratio} Normal [facility] Comment on above: Performed By: #### I JAROD VITAD #### [facility] [address] [address] [address] Susan Petersen ALP [Catalytic activity/Vol] 64 U/L Normal 46-116 [facility] Comment on above: Performed By: #### I JAROD, VITAD #### [facility] [address] [address] [address] Susan Petersen ALT [Catalytic activity/Vol] 19 U/L Normal 14-59 [facility] Comment on above: Performed By: #### I JAROD, VITAD #### [facility] [address] [address] [address] Susan Petersen Anion gap [Moles/Vol] 10.7 mmol/L Normal [facility] Comment on above: Performed By: #### I JAROD, VITAD #### [facility] [address] [address] [address] Susan Petersen AST [Catalytic activity/Vol] 12 U/L Critically low 15-37 [facility] Comment on above: Performed By: #### I JAROD, VITAD #### [facility] [address] [address] [address] Susan Petersen Bilirubin [Mass/Vol] 0.5 mg/dL Normal 0.2-1.0 [facility] Comment on above: Performed By: #### I JAROD, VITAD #### [facility] [address] [address] [address] Susan Petersen Calcium [Mass/Vol] 9.4 mg/dL Normal 8.5-10.1 [facility] Comment on above: Performed By: #### I JAROD, VITAD #### [facility] [address] [address] [address] Susan Petersen Chloride [Moles/Vol] 103 mmol/L Normal 98-107 [facility] Comment on above: Performed By: #### I JAROD, VITAD #### [facility] [address] [address] [address] Susan Petersen CO2 [Moles/Vol] 29.6 mmol/L Normal 21.0-32.0 [facility] Comment on above: Performed By: #### I JAROD, VITAD #### [facility] [address] [address] [address] Susan Petersen Creatinine [Mass/Vol] 1.01 mg/dL Normal 0.55-1.02 [facility] Comment on above: Performed By: #### I JAROD, VITAD #### [facility] [address] [place] [address] Dr. Susan Petersen EGFR-AF LIBYAN >60 Normal >=60 [facility] Comment on above: Performed By: #### I JAROD, VITAD #### [facility] [address] [place] [address] Dr. Susan Petersen EGFR-NON AF LIBYAN 59 mL/min/1.73m2 Critically low >=60 [facility] Comment on above: Performed By: #### I JAROD, VITAD #### [facility] [address] [place] [address] Dr. Susan Petersen Globulin (S) [Mass/Vol] 4.0 g/dL Normal [facility] Comment on above: Performed By: #### Autumn OLIVERA, VITAD #### [facility] [address] [place] [address] Dr. Susan Petersen Glucose [Mass/Vol] 109 mg/dL Critically high 74-106 [facility] Comment on above: Performed By: #### I JAROD, VITAD #### [facility] [address] [place] [address] Dr. Susan Petersen Potassium [Moles/Vol] 4.3 mmol/L Normal 3.5-5.1 [facility] Comment on above: Performed By: #### Autumn OLIVERA, VITAD #### [facility] [address] [place] [address] Dr. Susan Petersen Protein [Mass/Vol] 7.7 g/dL Normal 6.4-8.2 [facility] Comment on above: Performed By: #### I JAROD, VITAD #### [facility] [address] [place] [address] Dr. Susan Petersen Sodium [Moles/Vol] 139 mmol/L Normal 136-145 [facility] Comment on above: Performed By: #### Autumn OLIVERA, VITAD #### [facility] [address] [place] [address] Dr. Susan Petersen Urea nitrogen [Mass/Vol] 14.0 mg/dL Normal 7.0-18.0 [facility] Comment on above: Performed By: #### I JAROD, VITAD #### [facility] [address] [place] [address] Dr. Susan Petersen Urea nitrogen/Creatinine [Mass ratio] 13.9 mg/mg Normal [facility] Comment on above: Performed By: #### I JAROD, VITAD #### [facility] [address] [place] [address] Dr. Susan Petersen TSHon 05-20-2022 TSH 2.578 uIU/mL Normal 0.358-3.740 [facility] Comment on above: Performed By: #### T SH, CMP, T7, LIPID #### [facility] [address] [place] [address] Dr. Susan Petersen UA RANDOM W/MICROSCOPICon BACTERIA NONE SEEN Normal NONE SEEN [facility] Comment on above: Performed By: #### I JAROD VITAD #### [facility] [address] [place] [address] Dr. Susan Petersen Bilirubin Ql (U) Negative Normal NEGATIVE [facility] Comment on above: Performed By: #### I JAROD, VITAD #### [facility] [address] [place] [address] Dr. Susan Petersen CAST NONE SEEN Normal NONE SEEN [facility] Comment on above: Performed By: #### I JAROD VITAD #### [facility] [address] [place] [address] Dr. Susan Petersen Clarity (U) CLEAR Normal CLEAR [facility] Comment on above: Performed By: #### I JAROD VITAD #### [facility] [address] [place] [address] Dr. Susan Petersen Color (U) LT. YELLOW Normal YELLOW [facility] Comment on above: Performed By: #### I JAROD, VITAD #### [facility] [address] [place] [address] Dr. Susan Petersen Crystals LM Nom (Urine sed) NONE SEEN Normal NONE SEEN [facility] Comment on above: Performed By: #### I JAROD, VITAD #### [facility] [address] [address] [address] Susan Petersen Epithelial cells LM Ql (Urine sed) RARE Normal NONE SEEN /RARE [facility] Comment on above: Performed By: #### I JAROD, VITAD #### [facility] [address] [place] [address] Dr. Susan Petersen Glucose Ql (U) Negative Normal NEGATIVE [facility] Comment on above: Performed By: #### I JAROD, VITAD #### [facility] [address] [address] [address] Susan Peetrsen Hemoglobin Ql (U) Negative Normal NEGATIVE [facility] Comment on above: Performed By: #### I JAROD, VITAD #### [facility] [address] [place] [address] Dr. Susan Petersen Ketones Ql (U) Negative Normal NEGATIVE [facility] Comment on above: Performed By: #### I JAROD VITAD #### [facility] [address] [place] [address] Dr. Susan Petersen LEUKOCYTES Negative Normal NEGATIVE [facility] Comment on above: Performed By: #### I JAROD VITAD #### [facility] [address] [address] [address] Susan Petersen MUCOUS NONE SEEN Normal NONE SEEN [facility] Comment on above: Performed By: #### I JAROD VITAD #### [facility] [address] [place] [address] Dr. Susan Petersen Nitrite Ql (U) Negative Normal NEGATIVE [facility] Comment on above: Performed By: #### I JAROD, VITAD #### [facility] [address] [address] [address] Susan Petersen pH (U) 7.0 [pH] Normal 5-9 [facility] Comment on above: Performed By: #### I JAROD, VITAD #### [facility] [address] [place] [address] Dr. Susan Petersen RBC NONE SEEN Abnormal 0-2 [facility] Comment on above: Performed By: #### I JAROD, VITAD #### [facility] [address] [place] [address] Dr. Susan Petersen SPEC GRAVITY <=1.005 Abnormal 1.005-<=1.025 [facility] Comment on above: Performed By: #### I JAROD, VITAD #### [facility] [address] [place] [address] Dr. Susan Petersen UA PROTEIN Negative Normal NEGATIVE/ TRACE [facility] Comment on above: Performed By: #### I JAROD, VITAD #### [facility] [address] [place] [address] Dr. Susan Petersen Urobilinogen Qn (U) 0.2 {Camila'U}/dL Normal 0.2 - 1. 0 [facility] Comment on above: Performed By: #### I JAROD, VITAD #### [facility] [address] [place] [address] Dr. Susan Petersen WBC NONE SEEN Normal NONE SEEN [facility] Comment on above: Performed By: #### I JAROD, VITAD #### [facility] [address] [place] [address] Dr. Susan Petersen VITAMIN D 25 OHon 05-20-2022 VIT D 25-OH 54.6 ng/mL Normal The [facility] Comment on above: Performed By: #### I JAROD, VITAD #### [facility] [address] [place] [address] Dr. Susan Petersen VIT D RANGES SEE BELOW Normal [facility] Comment on above: Result Comment: <20 ng/mL Vit D deficient 20 - <30 ng/mL Vit D insufficient 30 - 100 ng/mL Vit D sufficient >100 ng/mL Potential Toxicity Performed By: #### I JAROD VITAD #### [facility] [address] [place] [address] Dr. Susan Petersen Vital Signs Date Time Vital Sign Value Performing Clinician Toan lloyd 12-24-2023 13:25-0500 Blood Pressure Location Fidencio BARLOW [facility] [place] 12-24-2023 13:25-0500 Diastolic blood pressure 82 mm[Hg] Fidencio NILL [facility] [place] 12-24-2023 13:25-0500 Heart rate 76 /min Fidencio MANNL [facility] [place] 12-24-2023 13:25-0500 Respiratory rate 16 /min Fidencio MANNL [facility] 12-24-2023 13:25-0500 Systolic blood pressure 120 mm[Hg] Fidencio MANNL [facility] Encounters Encounter Date Encounter Type Care Provider Facility Start: 12-24-2023 End: 12-25-2023 ambulatory Fidencio BARLOW Facility:[facility] Start: 12-24-2023 End: 12-24-2023 Patient encounter procedure Fidencio BARLOW General [facility] Start: 11-30-2023 ambulatory Fidencio BARLOW Facility:[facility] Start: 05-25-2022 Encounter for genera l adult medical examination without abnormal findings DR ROSSI MURRAY [facility] Start: 05-21-2022 End: 05-22-[address] ROSSI MURRAY Facility:[facility] Start: 05-21-2022 End: 05-22-2022 Encounter for general adult medical examination without abnormal findings DR ROSSI MURRAY Facility:[facility] Start: 05-20-2022 End: 05-21-[address] ROSSI MURRAY Facility:[facility] Procedures Date Procedure Procedure Detail Performing Clinician Endometrial ablation Fidencio BARLOW Ligation of fallopian tube Kay nash CAIN Immunizations Immunization Date Immunization Notes Care Provider Fa cility 10-28-2021 SARS-CoV-2 (COVID-19 ) mRNA BNT-162b2 vax Fidencio BARLOW [facility] 03-12-2021 SARS-CoV-2 (COVID-19 ) Ad26 vaccine, recombinant Fidencio BARLOW [facility] Comment on above: Result Comment: 2023: TPV40 NEGATED: Highlighted row has not occurred!12-24-2023 influenza virus vaccine, unspecified formulation Fidencio BARLOW [facility] [place] Payers Date Payer Category Payer Unknown [id number] [id number] 1975 Unknown [id number] 1974 Unknown [id number] 1959 Unknown [id number] Social History Date Type Detail Facility Start: 12-24-2023 Tobacco smoking status Heavy t obacco smoker (finding) [facility] [place] Tobacco smoking status Never [facility] [place] Sex Assigned At Female [facility] Functional Status Date Assessment Result Facility 12-24-2023 Functional Status N/A [facility] Clinical Note 12-24-2023 Note Date & Type [...] (COVID-19) Ad26 vaccine 03/12/2021 Recorded 2023-12-09: TPV40 [facility] Comment on above: Result Comment: Elec tronically Signed By: CAIN WATERS, Fidencio Valderrama\Date and Time Signed: 12/24/23 14:17 EST Evaluation + Plan note Note Date & Type Note Facility Evaluation + Plan note No data available for this section [facility] [place] [facility] Discharge instructions Note Date & Type Note Facility Hospital Discharge instructions No data available for this section [facility] [place] Progress note Note Date & Type Note Facility Progress note No data available for this section [facility] [place] Summary Purpose Family History No Family History Records Found No data available for this section No Family History Records Found Advance Directives No Advanced Directives Records FoundNo Advanced Directives Records Found Additional Source Comments INFORMATION SOURCE (unrecogn ized section and content) DATE CREATED AUTHOR 05/26/2022 [facility] DATE CREATED AUTHOR AUTHOR'S ORGANGRACE ATION [facility] inform[facility] n (unrecognized section and content) Personnel Name: Rossi Murray MD Address: Address: [address] [place] [address] FOR RECORDS PERTAINING TO PATIENTS WHO ARE [...] BE BASED ON THE PRIMARY CLINICAL RECORDS. [facility] [employer] [facility]. provides no warranty or guarantee of the accuracy or completeness of information in this document.
[2024-01-26 06:52] VITALS: BP 116/78; PULSE 101; RESP 16; TEMP 35.6; O2SAT 99; BMI 42.9
[2024-01-26] MEDS: LACTATED RINGER'S SOLUTION 1,000 ML 50 ML IV (07:04)
[2024-01-26 07:53] VITALS: BP 117/73; PULSE 73; RESP 16; TEMP 36.4; O2SAT 98
[2024-01-26 08:08] VITALS: BP 108/68; PULSE 72; RESP 16; O2SAT 97
[2024-01-26 08:23] VITALS: BP 128/74; PULSE 70; RESP 18; O2SAT 98
== END 2024-01-26 08:30 | disposition home or self-care (01) ==
PROVIDERS: PCP Family Medicine; Visit Provider Surgery
PROC: (CPT 811; principal; 2024-01-26 07:30)
DX: R19.5 Other fecal abnormalities (principal); Q43.8 Other specified congenital malformations of intestine; K21.9 Gastro-esophageal reflux disease without esophagitis; E05.00 Thyrotoxicosis with diffuse goiter without thyrotoxic crisis or storm; E66.01 Morbid (severe) obesity due to excess calories; Z68.41 Body mass index [BMI] 40.0-44.9, adult; F41.9 Anxiety disorder, unspecified; Z98.51 Tubal ligation status; F17.210 Nicotine dependence, cigarettes, uncomplicated
CPT/HCPCS: 45378; J2704

== ENCOUNTER 2024-12-02 07:29 | Outpatient (OUT) | payer OTHER, SELFPAY ==
--- OUTSIDE RECORDS SUMMARY | 2024-12-01 10:22 | XMS_ITS | CCD ---
Author Organization [facility] Care Team Providers Care Automotive Teacher Name Role Phone DR ROSSI MURRAY Primary Care Unavailable NURYS, DR RICHEY Admitting Unavailable DR ROSSI MURRAY Attending Unavailable DR ROSSI MURRAY Consulting Unavailable MARILYN, DR PRATIK Dugan Consulting Unavailable DR ROSSI MURRAY Consulting Unavailable DR ROSSI MURRAY Primary Care Unavailable DR ROSSI MURRAY Admitting Unavailable NURYS, DR RICHEY Attending Unavailable Rossi Murray Primary Care Physician Fidencio BARLOW Attending Unavailable Rossi Murray Referring Unavailable Fidencio BARLOW Attending Unavailable Allergies Allergy Classification Reported Allergen(s) Allergy Type Date of Onset Reaction(s) Facility (2 sources) Codeine; Translations: [codeine] Drug Allergy 5 [facility] Repository (1 source) traMADol Drug Allergy 5 [facility] Repository (1 source) Codeine; Translations: [codeine] Drug Allergy Nausea and vomiting (disorder) General Surgery [place] Medications Current Medications Medication Drug Class(es) Dates [...] Test Name Value Interpretation Reference Range Facility Reminderson 01-28-2024 Reminders - From: Alexandra Badillo LPN To: GSN - Clinical; Sent: 01/28/2024 13:03:54 EDT Show up: 12/28/2028 07:00:00 EST Subject: colonoscopy recall Due Date/Time: 01/25/2029 07:00:00 EDT Reminder/Recall Patient due for surveillance colonoscopy 01/25/2029 due to poor prep on colonoscopy completed 01/26/2024. Normal [facility] Outside Colonoscopyon 2023 Outside Colonoscopy [id number] #1.00TIFF Normal [facility] Insurance Correspondenceon 0 01-17-2024 Insurance Correspondence [id number]# 1.00TIFF [facility] Consent for Procedure/Surger yon 12-28-2023 Consent for Procedure/Surgery [id number] #1.00TIFF [facility] Ambulatory Visit Summaryon 0 12-24-2023 Ambulatory Visit Summary MIREYA CONNER Kailee :1975 Visit Date:12/24/2023 Ambulatory Visit Instructions Your Care Team Attending Physician - Fidencio BARLOW MD Primary Care Physician - Rossi Murray MD [...] for choosing us for your care. Normal [facility] Facesheeton 12-24-2023 Facesheet [id number]#1.00TIFF Normal [facility] Physician Referralon 024 Physician Referral [id number]# 1.00TIFF [facility] CULTURE URINEon 05-22-2022 CULTURE URINE Isolate 1 [...] F Trimethoprim/Sulfame thoxazole >=320 R F Normal [facility] Comment on above: Performed By: #### U RCX #### [facility] Laboratory [address] [place] [address] Dr. Susan Petersen INSULINon 05-21-2022 Insulin 9.7 uIU/mL Normal 2.6-24.9 [facility] Comment on above: Performed By: #### I NSULIN #### [facility] Laboratory [address] [address] [address] Susan Petersen MG MAMM SCREEN 3D LIN CADon 05-21-2022 MG MAMM SCREEN 3D LIN CAD Patient: MIREYA CONNER Exam Date: 05/21/2022 : 1975 Gender:F Ordering : DR ROSSI MURRAY . Admission #: [id number] Family : Order #: [id number] CLICK HERE TO VIEW EXAM RADIOLOGY REPORT [...] LOCATION: [facility] BREAST COMPOSITION: Heterogeneously dense,which may obscure small [...] [facility] OCC BLD IMMUNO SCREENon -0 OCCULT BLOOD Negative Normal NEGATIVE [facility] Comment on above: Performed By: #### O BSCRN #### [facility] [address] [place], [place] [address] Dr. Susan Petersen CBC AUTO DIFFon 05-20-2022 BASO # 0.1 103/ul Normal 0.0-0.1 [facility] Comment on above: Performed By: #### C BC #### [facility] [address] [place] [address] Dr. Susan Petersen Basophils/100 WBC (Bld) 0.9 % Normal 0.2-2.0 [facility] Comment on above: Performed By: #### C BC #### [facility] [address] [place] [address] Dr. Susan Petersen EO # 0.2 103/ul Normal 0.0-0.7 [facility] Comment on above: Performed By: #### C BC #### [facility] [address] [place] [address] Dr. Susan Petersen Eosinophils/100 WBC (Bld) 3.4 % Normal 0.9-7.0 [facility] Comment on above: Performed By: #### C BC #### [facility] [address] [place] [address] Dr. Susan Petersen Erythrocyte distribution width (RBC) [Ratio] 14.0 % Normal 11.0-15.0 [facility] Comment on above: Performed By: #### C BC #### [facility] [address] [place] [address] Dr. Susan Petersen Hematocrit (Bld) [Volume fraction] 41.2 % Normal 36.0-48.0 [facility] Comment on above: Performed By: #### C BC #### [facility] [address] [place] [address] Dr. Susan Petersen Hemoglobin (Bld) [Mass/Vol] 13.4 g/dL Normal 12.0-16.0 [facility] Comment on above: Performed By: #### C BC #### [facility] [address] [place] [address] Dr. Susan Petersen IG # 0.01 10e3/ul Normal 0.00-0.03 [facility] Comment on above: Performed By: #### C BC #### [facility] [address] [place] [address] Dr. Susan Petersen IG % 0.2 % Normal 0.0-0.5 [facility] Comment on above: Performed By: #### C BC #### [facility] [address] [place] [address] Dr. Susan Petersen LYMPH # 2.0 103/ul Normal 1.2-3.8 [facility] Comment on above: Performed By: #### C BC #### [facility] [address] [place] [address] Dr. Susan Petersen Lymphocytes/100 WBC (Bld) 34.8 % Normal 20.5-60.0 [facility] Comment on above: Performed By: #### C BC #### [facility] [address] [place] [address] Dr. Susan Petersen MANUAL DIFF REQ NO Normal [facility] Comment on above: Performed By: #### C BC #### [facility] [address] [place] [address] Dr. Susan Petersen MCH (RBC) [Entitic mass] 30.1 pg Normal 26.7-34.0 [facility] Comment on above: Performed By: #### C BC #### [facility] [address] [place] [address] Dr. Susan Petersen MCHC (RBC) [Mass/Vol] 32.5 g/dL Normal 29.9-35.2 [facility] Comment on above: Performed By: #### C BC #### [facility] [address] [place] [address] Dr. Susan Petersen MCV (RBC) [Entitic vol] 92.6 fL Normal 81.0-99.0 [facility] Comment on above: Performed By: #### C BC #### [facility] [address] [place] [address] Dr. Susan Petersen MONO # 0.5 103/ul Normal 0.3-0.8 [facility] Comment on above: Performed By: #### C BC #### [facility] [address] [place] [address] Dr. Susan Petersen Monocytes/100 WBC (Bld) 8.3 % Normal 1.7-12.0 [facility] Comment on above: Performed By: #### C BC #### [facility] [address] [place] [address] Dr. Susan Petersen NEUT # 3.1 103/ul Normal 1.4-6.5 [facility] Comment on above: Performed By: #### C BC #### [facility] [address] [place] [address] Dr. Susan Petersen Neutrophils/100 WBC (Bld) 52.4 % Normal 43.0-75.0 [facility] Comment on above: Performed By: #### C BC #### [facility] [address] [place] [address] Dr. Susan Petersen Platelet mean volume (Bld) [Entitic vol] 11.0 fL Normal 9.5-13.5 [facility] Comment on above: Performed By: #### C BC #### [facility] [address] [place] [address] Dr. Susan Petersen PLT 324 103/ul Normal 150-450 [facility] Comment on above: Performed By: #### C BC #### [facility] [address] [place] [address] Dr. Susan Petersen RBC 4.45 106/ul Normal 4.20-5.40 [facility] Comment on above: Performed By: #### C BC #### [facility] [address] [place] [address] Dr. Susan Petersen WBC 5.8 103/ul Normal 4.0-11.0 [facility] Comment on above: Performed By: #### C BC #### [facility] [address] [place] [address] Dr. Susan Petersen FREE THYROXINE INDEX T7on FTI 3.66 Normal 1.30-4.50 [facility] Comment on above: Performed By: #### I JACKIE OLIVERA #### [facility] [address] [place] [address] Dr. Susan Petersen T3U 31.0 % Normal 30.0-39.0 [facility] Comment on above: Performed By: #### JACKIE MONROE #### [facility] [address] [place] [address] Dr. Susan Petersen T4 [Mass/Vol] 11.80 ug/dL Normal 4.80-13.90 [facility] Comment on above: Performed By: #### I JACKIE OLIVERA #### [facility] [address] [address] [address] Susan Petersen GLYCOHEMOGLOBIN A1Con 2021 ADA RECOMMENDATION SEE BELOW Normal [facility] Comment on above: Result Comment: ADA RECOMMENDED LIMIT 4.0 - 6.0 ADA THERAPEUTIC TARGET < 7.0 ACTION SUGGESTED > 7.0 Performed By: #### A 1C #### [facility] [address] [address] [address] Susan Petersen Glucose [Mass/Vol] 120 mg/dL Normal [facility] Comment on above: Performed By: #### A 1C #### [facility] [address] [address] [address] Susan Petersen HbA1c (Bld) [Mass fraction] 5.8 % Normal 4.5-6.2 [facility] Comment on above: Performed By: #### A 1C #### [facility] [address] [address] [address] Susan Petersen IRONon 05-20-2022 Iron [Mass/Vol] 74.0 ug/dL Normal 50.0-170.0 [facility] Comment on above: Performed By: #### I JACKIE OLIVERA #### [facility] [address] [address] [address] Susan Petersen LIPID PROFILEon 05-20-2022 CHOL-HDL RATIO NORM SEE BELOW Normal [facility] Comment on above: Result Comment: 3.3 - 4.4 LOW RISK 4.4 - 7.1 AVERAGE RISK 7.1 - 11.0 MODERATE RISK >11.0 HIGH RISK Performed By: #### T SH, CMP, T7, LIPID #### [facility] [address] [address] [address] Susan Petersen Cholesterol [Mass/Vol] 210 mg/dL Critically high <=200 [facility] Comment on above: Performed By: #### T SH, CMP, T7, LIPID #### [facility] [address] [address] [address] Susan Petersen Cholesterol in HDL [Mass/Vol] 42 mg/dL Normal 40-60 [facility] Comment on above: Performed By: #### T SH, CMP, T7, LIPID #### [facility] [address] [address] [address] Susan Petersen Cholesterol in LDL [Mass/Vol] 133.2 mg/dL Normal [facility] Comment on above: Performed By: #### T SH, CMP, T7, LIPID #### [facility] [address] [address] [address] Susan Petersen Cholesterol.total/Chol esterol in HDL [Mass ratio] 5.0 {ratio} Normal [facility] Comment on above: Performed By: #### T SH, CMP, T7, LIPID #### [facility] [address] [address] [address] Susan Petersen HDL NORMAL > or = 60 mg/dl - LOW CARDIOVASCULAR RISK <40 mg/dl - HIGH CARDIOVASCULAR RISK Normal [facility] Comment on above: Performed By: #### T SH, CMP, T7, LIPID #### [facility] [address] [address] [address] Susan Petersen LDL CALC NORMAL SEE BELOW Normal [facility] Comment on above: Result Comment: <100 mg/dl OPTIMAL 100 - 129 mg/dl NEAR OR ABOVE OPTIMAL 130 - 159 mg/dl BORDERLINE HIGH 160 - 189 mg/dl HIGH >190 mg/dl VERY HIGH Performed By: #### T SH, CMP, T7, LIPID #### [facility] [address] [address] [address] Susan Petersen Triglyceride [Mass/Vol] 174 mg/dL Critically high <=150 [facility] Comment on above: Performed By: #### T SH, CMP, T7, LIPID #### [facility] [address] [address] [address] Susan Petersen VLDL CALC 34.8 mg/dL Normal [facility] Comment on above: Performed By: #### T SH, CMP, T7, LIPID #### [facility] [address] [address] [address] Susan Petersen PROF 14(COMP METB)on 022 Albumin [Mass/Vol] 3.7 g/dL Normal 3.4-5.0 [facility] Comment on above: Performed By: #### I JAROD, VITAD #### [facility] [address] [address] [address] Susan Petersen Albumin/Globulin [Mass ratio] 0.9 {ratio} Normal [facility] Comment on above: Performed By: #### I JAROD, VITAD #### [facility] [address] [address] [address] Suasn Petersen ALP [Catalytic activity/Vol] 64 U/L Normal 46-116 [facility] Comment on above: Performed By: #### I JAROD, VITAD #### [facility] [address] [address] [address] Susan Petersen ALT [Catalytic activity/Vol] 19 U/L Normal 14-59 [facility] Comment on above: Performed By: #### I JAROD, VITAD #### [facility] [address] [address] [address] Susan Petersen Anion gap [Moles/Vol] 10.7 mmol/L Normal [facility] Comment on above: Performed By: #### I JAROD, VITAD #### [facility] [address] [address] [address] Susan Petersen AST [Catalytic activity/Vol] 12 U/L Critically low 15-37 [facility] Comment on above: Performed By: #### I JAROD, VITAD #### [facility] [address] [address] [address] Susan Petersen Bilirubin [Mass/Vol] 0.5 mg/dL Normal 0.2-1.0 [facility] Comment on above: Performed By: #### I JAROD, VITAD #### [facility] [address] [address] [address] Susan Petersen Calcium [Mass/Vol] 9.4 mg/dL Normal 8.5-10.1 [facility] Comment on above: Performed By: #### I JAROD, VITAD #### [facility] [address] [address] [address] Susan Petersen Chloride [Moles/Vol] 103 mmol/L Normal 98-107 [facility] Comment on above: Performed By: #### I JAROD, VITAD #### [facility] [address] [address] [address] Susan Petersen CO2 [Moles/Vol] 29.6 mmol/L Normal 21.0-32.0 [facility] Comment on above: Performed By: #### I JAROD, VITAD #### [facility] [address] [address] [address] Susan Petersen Creatinine [Mass/Vol] 1.01 mg/dL Normal 0.55-1.02 [facility] Comment on above: Performed By: #### I JAROD, VITAD #### [facility] [address] [place] [address] Dr. Susan Petersen EGFR-AF DUTCH >60 Normal >=60 [facility] Comment on above: Performed By: #### I JAROD, VITAD #### [facility] [address] [place] [address] Dr. Susan Petersen EGFR-NON AF DUTCH 59 mL/min/1.73m2 Critically low >=60 [facility] Comment on above: Performed By: #### I JAROD, VITAD #### [facility] [address] [place] [address] Dr. Susan Petersen Globulin (S) [Mass/Vol] 4.0 g/dL Normal [facility] Comment on above: Performed By: #### I JAROD, VITAD #### [facility] [address] [address] [address] Susan Petersen Glucose [Mass/Vol] 109 mg/dL Critically high 74-106 [facility] Comment on above: Performed By: #### I JAROD, VITAD #### [facility] [address] [address] [address] Susan Petersen Potassium [Moles/Vol] 4.3 mmol/L Normal 3.5-5.1 [facility] Comment on above: Performed By: #### I JAROD, VITAD #### [facility] [address] [place] [address] Dr. Susan Petersen Protein [Mass/Vol] 7.7 g/dL Normal 6.4-8.2 [facility] Comment on above: Performed By: #### I JAROD, VITAD #### [facility] [address] [place] [address] Dr. Susan Petersen Sodium [Moles/Vol] 139 mmol/L Normal 136-145 [facility] Comment on above: Performed By: #### I JAROD, VITAD #### [facility] [address] [place] [address] Dr. Susan Petersen Urea nitrogen [Mass/Vol] 14.0 mg/dL Normal 7.0-18.0 [facility] Comment on above: Performed By: #### I JAROD, VITAD #### [facility] [address] [place] [address] Dr. Susan Petersen Urea nitrogen/Creatinine [Mass ratio] 13.9 mg/mg Normal [facility] Comment on above: Performed By: #### I JAROD VITAD #### [facility] [address] [place] [address] Dr. Susan Petersen TSHon 05-20-2022 TSH 2.578 uIU/mL Normal 0.358-3.740 [facility] Comment on above: Performed By: #### T SH, CMP, T7, LIPID #### [facility] [address] [place] [address] Dr. Susan Petersen UA RANDOM W/MICROSCOPICon BACTERIA NONE SEEN Normal NONE SEEN [facility] Comment on above: Performed By: #### I JAROD, VITAD #### [facility] [address] [place] [address] Dr. Susan Petersen Bilirubin Ql (U) Negative Normal NEGATIVE [facility] Comment on above: Performed By: #### I JAROD, VITAD #### [facility] [address] [place] [address] Dr. Susan Petersen CAST NONE SEEN Normal NONE SEEN [facility] Comment on above: Performed By: #### I JAROD, VITAD #### [facility] [address] [place] [address] Dr. Susan Petersen Clarity (U) CLEAR Normal CLEAR [facility] Comment on above: Performed By: #### I JAROD, VITAD #### [facility] [address] [place] [address] Dr. Susan Petersen Color (U) LT. YELLOW Normal YELLOW [facility] Comment on above: Performed By: #### I JAROD, VITAD #### [facility] [address] [place] [address] Dr. Susan Petersen Crystals LM Nom (Urine sed) NONE SEEN Normal NONE SEEN [facility] Comment on above: Performed By: #### I JAROD VITAD #### [facility] [address] [place] [address] Dr. Susan Petersen Epithelial cells LM Ql (Urine sed) RARE Normal NONE SEEN /RARE [facility] Comment on above: Performed By: #### I JAROD VITAD #### [facility] [address] [place] [address] Dr. Susan Petersen Glucose Ql (U) Negative Normal NEGATIVE [facility] Comment on above: Performed By: #### I JAROD VITAD #### [facility] [address] [place] [address] Dr. Susan Petersen Hemoglobin Ql (U) Negative Normal NEGATIVE [facility] Comment on above: Performed By: #### I JAROD VITAD #### [facility] [address] [place] [address] Dr. Susan Petersen Ketones Ql (U) Negative Normal NEGATIVE [facility] Comment on above: Performed By: #### I JAROD VITAD #### [facility] [address] [place] [address] Dr. Susan Petersen LEUKOCYTES Negative Normal NEGATIVE [facility] Comment on above: Performed By: #### I JAROD VITAD #### [facility] [address] [place] [address] Dr. Susan Petersen MUCOUS NONE SEEN Normal NONE SEEN [facility] Comment on above: Performed By: #### I JAROD, VITAD #### [facility] [address] [place] [address] Dr. Susan Petersen Nitrite Ql (U) Negative Normal NEGATIVE [facility] Comment on above: Performed By: #### I JAROD, VITAD #### [facility] [address] [place] [address] Dr. Susan Petersen pH (U) 7.0 [pH] Normal 5-9 [facility] Comment on above: Performed By: #### I JAROD VITAD #### [facility] [address] [place] [address] Dr. Susan Petersen RBC NONE SEEN Abnormal 0-2 [facility] Comment on above: Performed By: #### I JAROD VITAD #### [facility] [address] [place] [address] Dr. Susan Petersen SPEC GRAVITY <=1.005 Abnormal 1.005-<=1.025 [facility] Comment on above: Performed By: #### I JAROD VITAD #### [facility] [address] [place] [address] Dr. Susan Petersen UA PROTEIN Negative Normal NEGATIVE/ TRACE [facility] Comment on above: Performed By: #### I JAROD VITAD #### [facility] [address] [place] [address] Dr. Susan Petersen Urobilinogen Qn (U) 0.2 {Camila'U}/dL Normal 0.2 - 1. 0 [facility] Comment on above: Performed By: #### I JAROD VITAD #### [facility] [address] [place] [address] Dr. Susan Petersen WBC NONE SEEN Normal NONE SEEN [facility] Comment on above: Performed By: #### I JAROD VITAD #### [facility] [address] [place] [address] Dr. Susan Petersen VITAMIN D 25 OHon 05-20-2022 VIT D 25-OH 54.6 ng/mL Normal [facility] Comment on above: Performed By: #### I JAROD VITAD #### [facility] [address] [place], [place] [id number] Dr. Susan Petersen VIT D RANGES SEE BELOW Normal [facility] Comment on above: Result Comment: <20 ng/mL Vit D deficient 20 - <30 ng/mL Vit D insufficient 30 - 100 ng/mL Vit D sufficient >100 ng/mL Potential Toxicity Performed By: #### I JAROD, VITAD #### [facility] [address] [place] [address] Dr. Susan Petersen Vital Signs Date Time Vital Sign Value Performing Clinician Faci lity 12-24-2023 13:25-0500 Blood Pressure Location Fidencio NILL [facility] [place] 12-24-2023 13:25-0500 Diastolic blood pressure 82 mm[Hg] Fidencio NILL [facility] [place] 12-24-2023 13:25-0500 Heart rate 76 /min Fidencio NILL [facility] [place] 12-24-2023 13:25-0500 Respiratory rate 16 /min Fidencio NILL [facility] [place] 12-24-2023 13:25-0500 Systolic blood pressure 120 mm[Hg] Fidencio NILL [facility] [place] Encounters Encounter Date Encounter Type Care Provider Facility Start: 01-26-2024 End: 01-27-2024 ambulatory Fidencio R NILL Facility:[facility] Start: 12-24-2023 End: 12-25-2023 ambulatory Fidencio R NILL Facility:[facility] Start: 12-24-2023 End: 12-24-2023 Patient encounter procedure Fidencio R NILL [facility] Start: 11-30-2023 ambulatory Fidencio NILL Facility:[facility] [place] Start: 05-25-2022 Encounter for genera l adult medical examination without abnormal findings DR ROSSI MURRAY [facility] Start: 05-21-2022 End: 05-22-[address] ROSSI MURRAY Facility: Start: 05-21-2022 End: 05-22-2022 Encounter for general adult medical examination without abnormal findings DR ROSSI MURRAY Facility:[facility] Start: 05-20-2022 End: 05-21-[address] ROSSI MURRAY Facility:[facility] Procedures Date Procedure Procedure Detail Performing Clinician Endometrial ablation Fidencio CAIN Ligation of fallopian tube Kay MANNKeila Immunizations Immunization Date Immunization Notes Care Provider Fa cility 10-28-2021 SARS-CoV-2 (COVID-19 ) mRNA BNT-162b2 vax Fidencio MANNKeila [facility] [place] 03-12-2021 SARS-CoV-2 (COVID-19 ) Ad26 vaccine, recombinant Fidencio MANNL [facility] [place] Comment on above: Result Comment: 2023: TPV40 NEGATED: Highlighted row has not occurred!12-24-2023 influenza virus vaccine, unspecified formulation Fidencio MANNKeila [facility] [place] Payers Date Payer Category Payer Unknown [id number] 1975 Unknown [id number] 1974 Unknown [id number] 1974 Unknown [id number] 1959 Unknown [id number] Social History Date Type Detail Facility Start: 12-24-2023 Tobacco smoking status Heavy t obacco smoker (finding) [facility] [place] Tobacco smoking status Never [facility] [place] Sex Assigned At Female [facility] Functional Status Date Assessment Result Facility 12-24-2023 Functional Status N/A [facility] 12-24-2023 Note Date & Type [...] vaccine 03/12/2021 Recorded 2023-12-09: TPV40 [facility] Comment on above: Result Comment: Elec tronically Signed By: CAIN WATERS, Fidencio Valderrama\Date and Time Signed: 12/24/23 14:17 EST Evaluation + Plan note Note Date & Type Note Facility Evaluation + Plan note No data available for this section [facility] Discharge instructions Note Date & Type Note Facility Hospital Discharge instructions No data available for this section [facility] [place] Progress note Note Date & Type Note Facility Progress note No data available for this section [facility] [place] Summary Purpose Family History No Family History Records Found No data available for this section No Family History Records Found Advance Directives No Advanced Directives Records FoundNo Advanced Directives Records Found Additional Source Comments INFORMATION SOURCE (unrecogn ized section and content) DATE CREATED AUTHOR 05/26/2022 [facility] DATE CREATED AUTHOR AUTHOR'S ORGANIZ ATION 02/01/2024 [facility] Patient Care team informatio n (unrecognized section and content) Personnel Name: Rossi [place] MD Address: Address: [address] [place] [address] FOR RECORDS PERTAINING TO PATIENTS WHO ARE [...] BE BASED ON THE PRIMARY CLINICAL RECORDS. [facility] [employer] [facility]. provides no warranty or guarantee of the accuracy or completeness of information in this document.
--- OUTSIDE RECORDS SUMMARY | 2024-12-02 07:31 | XMS_ITS | CCD ---
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 Normal [facility] Outside Colonoscopyon 2023 Outside Colonoscopy [id number] #1.00TIFF Normal [facility] Insurance Correspondenceon 0 01-17-2024 Insurance Correspondence [id number]# 1.00TIFF [facility] Consent for Procedure/Surger yon 12-28-2023 Consent for Procedure/Surgery [id number] #1.00TIFF [facility] Ambulatory Visit Summaryon 0 12-24-2023 Ambulatory Visit [...] for choosing us for your care. Normal [facility] Facesheeton 12-24-2023 Facesheet [id number]#1.00TIFF Normal [facility] Physician Referralon 024 Physician Referral [id number]# 1.00TIFF [facility] CULTURE URINEon 05-22-2022 CULTURE URINE Isolate 1 [...] F Trimethoprim/Sulfame thoxazole >=320 R F Normal [facility] Comment on above: Performed By: #### U RCX #### [facility] [address] [place] [address] Dr. Susan Petersen INSULINon 05-21-2022 Insulin 9.7 uIU/mL Normal 2.6-24.9 [facility] Comment on above: Performed By: #### I NSULIN #### [facility] [address] [address] [address] Susan Petersen MG MAMM SCREEN 3D LIN CADon 05-21-2022 MG MAMM SCREEN 3D LIN CAD Patient: MIREYA CONNER Exam Date: 05/21/2022 : 1975 Gender:F Ordering : DR ROSSI MURRAY . Admission #: [id number] Family : Order #: [id number] CLICK HERE TO VIEW EXAM RADIOLOGY REPORT [...] uterine cancer at age 17. LOCATION: [facility] BREAST COMPOSITION: Heterogeneously dense,which may obscure [...] M.D. on 05/22/2022 at 14:26 Normal [facility] OCC BLD IMMUNO SCREENon -0 OCCULT BLOOD Negative Normal NEGATIVE [facility] Comment on above: Performed By: #### O BSCRN #### [facility] [address] [place], [place] [address] Dr. Susan Petersen CBC AUTO DIFFon 05-20-2022 BASO # 0.1 103/ul Normal 0.0-0.1 [facility] Comment on above: Performed By: #### C BC #### [facility] [address] [place] [address] Dr. Susan Petersen Basophils/100 WBC (Bld) 0.9 % Normal 0.2-2.0 [facility] Comment on above: Performed By: #### C BC #### [facility] [address] [place] [address] Dr. Susan Petersen EO # 0.2 103/ul Normal 0.0-0.7 [facility] Comment on above: Performed By: #### C BC #### [facility] [address] [place] [address] Dr. Susan Petersen Eosinophils/100 WBC (Bld) 3.4 % Normal 0.9-7.0 [facility] Comment on above: Performed By: #### C BC #### [facility] [address] [place] [address] Dr. Susan Petersen Erythrocyte distribution width (RBC) [Ratio] 14.0 % Normal 11.0-15.0 [facility] Comment on above: Performed By: #### C BC #### [facility] [address] [place] [address] Dr. Susan Petersen Hematocrit (Bld) [Volume fraction] 41.2 % Normal 36.0-48.0 [facility] Comment on above: Performed By: #### C BC #### [facility] [address] [place] [address] Dr. Susan Petersen Hemoglobin (Bld) [Mass/Vol] 13.4 g/dL Normal 12.0-16.0 [facility] Comment on above: Performed By: #### C BC #### [facility] [address] [place] [address] Dr. Susan Petersen IG # 0.01 10e3/ul Normal 0.00-0.03 [facility] Comment on above: Performed By: #### C BC #### [facility] [address] [place] [address] Dr. Susan Petersen IG % 0.2 % Normal 0.0-0.5 [facility] Comment on above: Performed By: #### C BC #### [facility] [address] [place] [address] Dr. Susan Petersen LYMPH # 2.0 103/ul Normal 1.2-3.8 [facility] Comment on above: Performed By: #### C BC #### [facility] [address] [place] [address] Dr. Susan Petersen Lymphocytes/100 WBC (Bld) 34.8 % Normal 20.5-60.0 [facility] Comment on above: Performed By: #### C BC #### [facility] [address] [place] [address] Dr. Susan Petersen MANUAL DIFF REQ NO Normal [facility] Comment on above: Performed By: #### C BC #### [facility] [address] [place] [address] Dr. Susan Petersen MCH (RBC) [Entitic mass] 30.1 pg Normal 26.7-34.0 [facility] Comment on above: Performed By: #### C BC #### [facility] [address] [place] [address] Dr. Susan Petersen MCHC (RBC) [Mass/Vol] 32.5 g/dL Normal 29.9-35.2 [facility] Comment on above: Performed By: #### C BC #### [facility] [address] [place] [address] Dr. Susan Petersen MCV (RBC) [Entitic vol] 92.6 fL Normal 81.0-99.0 [facility] Comment on above: Performed By: #### C BC #### [facility] [address] [place] [address] Dr. Susan Petersen MONO # 0.5 103/ul Normal 0.3-0.8 [facility] Comment on above: Performed By: #### C BC #### [facility] [address] [place] [address] Dr. Susan Petersen Monocytes/100 WBC (Bld) 8.3 % Normal 1.7-12.0 [facility] Comment on above: Performed By: #### C BC #### [facility] [address] [place] [address] Dr. Susan Petersen NEUT # 3.1 103/ul Normal 1.4-6.5 [facility] Comment on above: Performed By: #### C BC #### [facility] [address] [place] [address] Dr. Susan Petersen Neutrophils/100 WBC (Bld) 52.4 % Normal 43.0-75.0 [facility] Comment on above: Performed By: #### C BC #### [facility] [address] [place] [address] Dr. Susan Petersen Platelet mean volume (Bld) [Entitic vol] 11.0 fL Normal 9.5-13.5 [facility] Comment on above: Performed By: #### C BC #### [facility] [address] [place] [address] Dr. Susan Petersen PLT 324 103/ul Normal 150-450 [facility] Comment on above: Performed By: #### C BC #### [facility] [address] [place] [address] Dr. Susan Petersen RBC 4.45 106/ul Normal 4.20-5.40 [facility] Comment on above: Performed By: #### C BC #### [facility] [address] [place] [address] Dr. Susan Petersen WBC 5.8 103/ul Normal 4.0-11.0 [facility] Comment on above: Performed By: #### C BC #### [facility] [address] [place] [address] Dr. Susan Petersen FREE THYROXINE INDEX T7on FTI 3.66 Normal 1.30-4.50 [facility] Comment on above: Performed By: #### I JACKIE OLIVERA #### [facility] [address] [place] [address] Dr. Susan Petersen T3U 31.0 % Normal 30.0-39.0 [facility] Comment on above: Performed By: #### JACKIE MONROE #### [facility] [address] [place] [address] Dr. Susan Petersen T4 [Mass/Vol] 11.80 ug/dL Normal 4.80-13.90 [facility] Comment on above: Performed By: #### I JACKIE OLIVERA #### [facility] [address] [address] [address] Susan Petersen GLYCOHEMOGLOBIN A1Con 2021 ADA RECOMMENDATION SEE BELOW Normal [facility] Comment on above: Result Comment: ADA RECOMMENDED LIMIT 4.0 - 6.0 ADA THERAPEUTIC TARGET < 7.0 ACTION SUGGESTED > 7.0 Performed By: #### A 1C #### [facility] [address] [address] [address] Susan Petersen Glucose [Mass/Vol] 120 mg/dL Normal [facility] Comment on above: Performed By: #### A 1C #### [facility] [address] [address] [address] Susan Petersen HbA1c (Bld) [Mass fraction] 5.8 % Normal 4.5-6.2 [facility] Comment on above: Performed By: #### A 1C #### [facility] [address] [address] [address] Susan Petersen IRONon 05-20-2022 Iron [Mass/Vol] 74.0 ug/dL Normal 50.0-170.0 [facility] Comment on above: Performed By: #### I JACKIE OLIVERA #### [facility] [address] [address] [address] Susan Petersen LIPID PROFILEon 05-20-2022 CHOL-HDL RATIO NORM SEE BELOW Normal [facility] Comment on above: Result Comment: 3.3 - 4.4 LOW RISK 4.4 - 7.1 AVERAGE RISK 7.1 - 11.0 MODERATE RISK >11.0 HIGH RISK Performed By: #### T SH, CMP, T7, LIPID #### [facility] [address] [address] [address] Susan Petersen Cholesterol [Mass/Vol] 210 mg/dL Critically high <=200 [facility] Comment on above: Performed By: #### T SH, CMP, T7, LIPID #### [facility] [address] [address] [address] Susan Petersen Cholesterol in HDL [Mass/Vol] 42 mg/dL Normal 40-60 [facility] Comment on above: Performed By: #### T SH, CMP, T7, LIPID #### [facility] [address] [address] [address] Susan Petersen Cholesterol in LDL [Mass/Vol] 133.2 mg/dL Normal [facility] Comment on above: Performed By: #### T SH, CMP, T7, LIPID #### [facility] [address] [address] [address] Susan Petersen Cholesterol.total/Chol esterol in HDL [Mass ratio] 5.0 {ratio} Normal [facility] Comment on above: Performed By: #### T SH, CMP, T7, LIPID #### [facility] [address] [address] [address] Susan Petersen HDL NORMAL > or = 60 mg/dl - LOW CARDIOVASCULAR RISK <40 mg/dl - HIGH CARDIOVASCULAR RISK Normal [facility] Comment on above: Performed By: #### T SH, CMP, T7, LIPID #### [facility] [address] [address] [address] Susan Petersen LDL CALC NORMAL SEE BELOW Normal [facility] Comment on above: Result Comment: <100 mg/dl OPTIMAL 100 - 129 mg/dl NEAR OR ABOVE OPTIMAL 130 - 159 mg/dl BORDERLINE HIGH 160 - 189 mg/dl HIGH >190 mg/dl VERY HIGH Performed By: #### T SH, CMP, T7, LIPID #### [facility] [address] [address] [address] Susan Petersen Triglyceride [Mass/Vol] 174 mg/dL Critically high <=150 [facility] Comment on above: Performed By: #### T SH, CMP, T7, LIPID #### [facility] [address] [address] [address] Susan Petersen VLDL CALC 34.8 mg/dL Normal [facility] Comment on above: Performed By: #### T SH, CMP, T7, LIPID #### [facility] [address] [address] [address] Susan Petersen PROF 14(COMP METB)on 022 Albumin [Mass/Vol] 3.7 g/dL Normal 3.4-5.0 [facility] Comment on above: Performed By: #### I JAROD, VITAD #### [facility] [address] [address] [address] Susan Petersen Albumin/Globulin [Mass ratio] 0.9 {ratio} Normal [facility] Comment on above: Performed By: #### I JAROD, VITAD #### [facility] [address] [address] [address] Susan Petersen ALP [Catalytic activity/Vol] 64 U/L Normal 46-116 [facility] Comment on above: Performed By: #### I JAROD, VITAD #### [facility] [address] [address] [address] Susan Petersen ALT [Catalytic activity/Vol] 19 U/L Normal 14-59 [facility] Comment on above: Performed By: #### I JAROD, VITAD #### [facility] [address] [address] [address] Susan Petersen Anion gap [Moles/Vol] 10.7 mmol/L Normal [facility] Comment on above: Performed By: #### I JAROD, VITAD #### [facility] [address] [address] [address] Susan Petersen AST [Catalytic activity/Vol] 12 U/L Critically low 15-37 [facility] Comment on above: Performed By: #### I JAROD, VITAD #### [facility] [address] [address] [address] Susan Petersen Bilirubin [Mass/Vol] 0.5 mg/dL Normal 0.2-1.0 [facility] Comment on above: Performed By: #### I JAROD, VITAD #### [facility] [address] [address] [address] Susan Petersen Calcium [Mass/Vol] 9.4 mg/dL Normal 8.5-10.1 [facility] Comment on above: Performed By: #### I JAROD, VITAD #### [facility] [address] [address] [address] Susan Petersen Chloride [Moles/Vol] 103 mmol/L Normal 98-107 [facility] Comment on above: Performed By: #### I JAROD, VITAD #### [facility] [address] [address] [address] Susan Petersen CO2 [Moles/Vol] 29.6 mmol/L Normal 21.0-32.0 [facility] Comment on above: Performed By: #### I JAROD, VITAD #### [facility] [address] [address] [address] Susan Petersen Creatinine [Mass/Vol] 1.01 mg/dL Normal 0.55-1.02 [facility] Comment on above: Performed By: #### I JAROD, VITAD #### [facility] [address] [place] [address] Dr. Susan Petersen EGFR-AF GIBRALTARIAN >60 Normal >=60 [facility] Comment on above: Performed By: #### I JAROD, VITAD #### [facility] [address] [place] [address] Dr. Susan Petersen EGFR-NON AF GIBRALTARIAN 59 mL/min/1.73m2 Critically low >=60 [facility] Comment on above: Performed By: #### I JAROD, VITAD #### [facility] [address] [place] [address] Dr. Susan Petersen Globulin (S) [Mass/Vol] 4.0 g/dL Normal [facility] Comment on above: Performed By: #### I JAROD, VITAD #### [facility] [address] [address] [address] Susan Petersen Glucose [Mass/Vol] 109 mg/dL Critically high 74-106 T [facility] Comment on above: Performed By: #### I JAROD, VITAD #### [facility] [address] [address] [address] Susan Petersen Potassium [Moles/Vol] 4.3 mmol/L Normal 3.5-5.1 [facility] Comment on above: Performed By: #### I JAROD, VITAD #### [facility] [address] [place] [address] Dr. Susan Petersen Protein [Mass/Vol] 7.7 g/dL Normal 6.4-8.2 [facility] Comment on above: Performed By: #### I JAROD, VITAD #### [facility] [address] [place] [address] Dr. Susan Petersen Sodium [Moles/Vol] 139 mmol/L Normal 136-145 [facility] Comment on above: Performed By: #### I JAROD, VITAD #### [facility] [address] [place] [address] Dr. Susan Petersen Urea nitrogen [Mass/Vol] 14.0 mg/dL Normal 7.0-18.0 [facility] Comment on above: Performed By: #### I JAROD, VITAD #### [facility] [address] [place] [address] Dr. Susan Petersen Urea nitrogen/Creatinine [Mass ratio] 13.9 mg/mg Normal [facility] Comment on above: Performed By: #### I JAROD VITAD #### [facility] [address] [place] [address] Dr. Susan Petersen TSHon 05-20-2022 TSH 2.578 uIU/mL Normal 0.358-3.740 [facility] Comment on above: Performed By: #### T SH, CMP, T7, LIPID #### [facility] [address] [place] [address] Dr. Susan Petersen UA RANDOM W/MICROSCOPICon BACTERIA NONE SEEN Normal NONE SEEN [facility] Comment on above: Performed By: #### I JAROD, VITAD #### [facility] [address] [place] [address] Dr. Susan Petersen Bilirubin Ql (U) Negative Normal NEGATIVE [facility] Comment on above: Performed By: #### I JAROD, VITAD #### [facility] [address] [place] [address] Dr. Susan Petersen CAST NONE SEEN Normal NONE SEEN [facility] Comment on above: Performed By: #### I JAROD, VITAD #### [facility] [address] [place] [address] Dr. Susan Petersen Clarity (U) CLEAR Normal CLEAR [facility] Comment on above: Performed By: #### I JAROD, VITAD #### [facility] [address] [place] [address] Dr. Susan Petersen Color (U) LT. YELLOW Normal YELLOW [facility] Comment on above: Performed By: #### I JAROD, VITAD #### [facility] [address] [place] [address] Dr. Susan Petersen Crystals LM Nom (Urine sed) NONE SEEN Normal NONE SEEN [facility] Comment on above: Performed By: #### I JAROD VITAD #### [facility] [address] [place] [address] Dr. Susan Petersen Epithelial cells LM Ql (Urine sed) RARE Normal NONE SEEN /RARE [facility] Comment on above: Performed By: #### I JAROD VITAD #### [facility] [address] [place] [address] Dr. Susan Petersen Glucose Ql (U) Negative Normal NEGATIVE [facility] [place] [facility] Comment on above: Performed By: #### I JAROD VITAD #### [facility] [address] [place] [address] Dr. Susan Petersen Hemoglobin Ql (U) Negative Normal NEGATIVE [facility] Comment on above: Performed By: #### I JAROD VITAD #### [facility] [address] [place] [address] Dr. Susan Petersen Ketones Ql (U) Negative Normal NEGATIVE [facility] [place] [facility] Comment on above: Performed By: #### I JAROD VITAD #### [facility] [address] [place] [address] Dr. Susan Petersen LEUKOCYTES Negative Normal NEGATIVE [facility] Comment on above: Performed By: #### I JAROD VITAD #### [facility] [address] [place] [address] Dr. Susan Petersen MUCOUS NONE SEEN Normal NONE SEEN [facility] Comment on above: Performed By: #### I JAROD, VITAD #### [facility] [address] [place] [address] Dr. Susan Petersen Nitrite Ql (U) Negative Normal NEGATIVE [facility] [place] [facility] Comment on above: Performed By: #### I JAROD, VITAD #### [facility] [address] [place] [address] Dr. Susan Petersen pH (U) 7.0 [pH] Normal 5-9 [facility] Comment on above: Performed By: #### I JAROD VITAD #### [facility] [address] [place] [address] Dr. Susan Petersen RBC NONE SEEN Abnormal 0-2 [facility] Comment on above: Performed By: #### I JAROD VITAD #### [facility] [address] [place] [address] Dr. Susan Petersen SPEC GRAVITY <=1.005 Abnormal 1.005-<=1.025 [facility] Comment on above: Performed By: #### I JAROD VITAD #### [facility] [address] [place] [address] Dr. Susan Petersen UA PROTEIN Negative Normal NEGATIVE/ TRACE [facility] Comment on above: Performed By: #### I JAROD VITAD #### [facility] [address] [place] [address] Dr. Susan Petersen Urobilinogen Qn (U) 0.2 {Camila'U}/dL Normal 0.2 - 1. 0 [facility] Comment on above: Performed By: #### I JAROD VITAD #### [facility] [address] [place] [address] Dr. Susan Petersen WBC NONE SEEN Normal NONE SEEN [facility] Comment on above: Performed By: #### I JAROD VITAD #### [facility] [address] [place] [address] Dr. Susan Petersen VITAMIN D 25 OHon 05-20-2022 VIT D 25-OH 54.6 ng/mL Normal [facility] Comment on above: Performed By: #### I JAROD VITAD #### [facility] [address] [place], [place] [id number] Dr. Susan Petersen VIT D RANGES SEE BELOW Normal [facility] Comment on above: Result Comment: <20 ng/mL Vit D deficient 20 - <30 ng/mL Vit D insufficient 30 - 100 ng/mL Vit D sufficient >100 ng/mL Potential Toxicity Performed By: #### I JAROD, VITAD #### [facility] [address] [place] [address] Dr. Susan Petersen Vital Signs Date Time Vital Sign Value Performing Clinician Faci lity 12-24-2023 13:25-0500 Blood Pressure Location Fidencio NILL [facility] [place] 12-24-2023 13:25-0500 Diastolic blood pressure 82 mm[Hg] Fidencio NILL [facility] [place] 12-24-2023 13:25-0500 Heart rate 76 /min Fidencio NILL [facility] [place] 12-24-2023 13:25-0500 Respiratory rate 16 /min Fidencio NILL [facility] [place] 12-24-2023 13:25-0500 Systolic blood pressure 120 mm[Hg] Fidencio NILL [facility] [place] Encounters Encounter Date Encounter Type Care Provider Facility Start: 01-26-2024 End: 01-27-2024 ambulatory Fidencio R NILL Facility:[facility] Start: 12-24-2023 End: 12-25-2023 ambulatory Fidencio R NILL Facility:[facility] Start: 12-24-2023 End: 12-24-2023 Patient encounter procedure Fidencio R NILL [facility] Start: 11-30-2023 ambulatory Fidencio NILL Facility:[facility] [place] Start: 05-25-2022 Encounter for genera l adult medical examination without abnormal findings DR ROSSI MURRAY [facility] Start: 05-21-2022 End: 05-22-[address] ROSSI [...] mRNA BNT-162b2 vax Fidencio MANNKeila [facility] [place] 03-12-2021 SARS-CoV-2 (COVID-19 ) Ad26 vaccine, recombinant Fidencio MANNL [facility] [place] Comment on above: Result Comment: 2023: TPV40 NEGATED: Highlighted row has not occurred!12-24-2023 influenza virus vaccine, unspecified formulation Fidencio MANNKeila [facility] [place] Payers Date Payer Category Payer Unknown [id number] 2.16.84 [id number] 1975 Unknown [id number] 2.16.84 [id number] 1975 Unknown [id number] 2.16.8 [id number] 1975 Unknown [id number] 2.16.8 [id number] 1960 Unknown [id number] Social History Date Type Detail Facility Start: 12-24-2023 Tobacco smoking status Heavy t obacco smoker (finding) [facility] [place] Tobacco smoking status Never [facility] [place] Sex Assigned At Female [facility] Functional Status Date Assessment Result Facility 12-24-2023 Functional Status N/A [facility] 12-24-2023 Note Date & Type [...] (COVID-19) Ad26 vaccine 03/12/2021 Recorded 2023-12-09: TPV40 [facility] Comment on above: Result Comment: Elec tronically Signed By: CAIN WATERS, Fidencio Valderrama\Date and Time Signed: 12/24/23 14:17 EST Evaluation + Plan note Note Date & Type Note Facility Evaluation + Plan note No data available for this section [facility] Discharge instructions Note Date & Type Note Facility Hospital Discharge instructions No data available for this section [facility] [place] Progress note Note Date & Type Note Facility Progress note No data available for this section [facility] [place] Summary Purpose Family History No Family History Records Found No data available for this section No Family History Records Found Advance Directives No Advanced Directives Records FoundNo Advanced Directives Records Found Additional Source Comments INFORMATION SOURCE (unrecogn ized section and content) DATE CREATED AUTHOR 05/26/2022 [facility] DATE CREATED AUTHOR AUTHOR'S ORGANIZ ATION 02/01/2024 [facility] Patient Care team informatio n (unrecognized section and content) Personnel Name: Rossi Murray MD Address: Address: [address] [place] [address] FOR RECORDS PERTAINING TO PATIENTS WHO ARE [...] BE BASED ON THE PRIMARY CLINICAL RECORDS. [facility]. provides no warranty or guarantee of the accuracy or completeness of information in this document.
[2024-12-02 09:22] LABS: Basophils Absolute Auto 0.1 10^3/uL (0.0-0.1); Basophils Percent Auto 1.2 % (0.2-2.0); Eosinophils Absolute Auto 0.2 10^3/uL (0.0-0.7); Eosinophils Percent Auto 3.9 % (0.9-7.0); Hematocrit 39.9 % (36.0-48.0); Hemoglobin 12.7 g/dL (12.0-16.0); Immature Granulocytes Abs Auto 0.01 10^3/uL (0.00-0.03); Immature Granulocytes Pct Auto 0.2 % (0.0-0.5); Lymphocytes Percent Auto 34.3 % (20.5-60.0); Mean Corpuscular HGB Conc 31.8 g/dL (29.9-35.2); Mean Corpuscular Hemoglobin 29.5 pg (26.7-34.0); Mean Corpuscular Volume 92.6 fL (81.0-99.0); Monocytes Absolute Auto 0.5 10^3/uL (0.3-0.8); Monocytes Percent Auto 7.9 % (1.7-12.0); Neutrophils Percent Auto 52.5 % (43.0-75.0); Platelet Count 359 10^3/uL (150-450); Red Blood Count 4.31 10^6/uL (4.20-5.40); Red Cell Distribution Width 13.8 % (11.0-15.0); White Blood Count 5.7 10^3/uL (4.0-11.0)
[2024-12-02 10:10] LABS: Alanine Aminotransferase 22 U/L (14-59); Albumin Globulin Ratio 0.8; Albumin Level 3.2 g/dL (3.4-5.0); Alkaline Phosphatase 76 U/L (46-116); Anion Gap 13.5; Aspartate Amino Transferase 17 U/L (15-37); BUN Creatinine Ratio 16.8; Bilirubin Total 0.4 mg/dL (0.2-1.0); Calcium 9.2 mg/dL (8.5-10.1); Carbon Dioxide 29.9 mmol/L (21.0-32.0); Chloride 104 mmol/L (98-107); Chol HDL Ratio 4.7; Estimated Average Glucose 114 mg/dL; Estimated GFR (African America >60 (>=60 mL/min/1.73m^2); Estimated GFR (Non-African Ame 54 (>=60 mL/min/1.73m^2); Free T3 1.55 pg/mL (2.18-3.98); Glucose 98 mg/dL (74-106); Glycohemoglobin A1C 5.6 % (4.5-6.2); HDL Cholesterol 43 mg/dL (40-60); Potassium 4.4 mmol/L (3.5-5.1); Sodium 143 mmol/L (136-145); Thyroid Stimulating Hormone 1.997 uIU/mL (0.358-3.740); Total Protein 7.2 g/dL (6.4-8.2); Triglycerides 146 mg/dL (<=150); VLDL CHOLESTEROL 29.2 mg/dL
[2024-12-02 13:43] LABS: Cholesterol 210 mg/dL (<=200)
[2024-12-03 14:07] LABS: Insulin 12.5 uIU/mL (2.6-24.9)
== END 2024-12-02 07:30 | disposition home or self-care (01) ==
LOC: LAB 07:29
PROVIDERS: PCP Family Medicine; Visit Provider Family Medicine
DX: Z00.00 Encounter for general adult medical examination without abnormal findings (principal)
CPT/HCPCS: 36415; 80053; 80061; 83036; 83525; 83540; 84436; 84443; 84481; 85025